=== PATIENT | male | born 1975 | race African-American/Black ===

== ENCOUNTER 2017-08-02 20:42 | Inpatient (IN) | payer OTHER ==
[2017-08-02 21:00] VITALS: BMI 28.0
--- NOTE | 2017-08-02 21:29 | HP ---
CIWA Score - CIWA Score Nausea/Vomitin-Mild Nausea/No Vomiting Muscle Tremors: 5 Anxiety: 4-Mod. Anxious/Guarded Agitation: 1-Slight > Activity Paroxysmal Sweats: 3 Orientation: 1-Uncertain about Date Tacttile Disturbances: 0-None Auditory Disturbances: 0-None Visual Disturbances: 0-None Headache: 0-None Present CIWA-Ar Total Score: 15 Admission ROS S - HPI Chief Complaint: Alcohol withdrawal symptoms Allergies/Adverse Reactions: Allergies Allergy/AdvReac Type Severity Reaction Status Date / Time No Known Allergies Allergy Verified 08/02/17 21:59 History of Present Illness: 42 years old male with a long history of alcohol dependence is admitted to detox. Patient has been in previous detox and reports 2 years of sobriety. He has medical history of asthma, HTN, GERD and depression. He denies suicide attempt and suicidal ideation at this time. Exam Limitations: No Limitations - Ebola screening Have you traveled outside of the country in the last 21 days: No Have you had contact with anyone from an Ebola affected area: No Have you been sick,other than usual withdrawal symptoms: No Do you have a fever: No - Review of Systems Constitutional: Loss of Appetite, Malaise, Night Sweats, Changes in sleep EENT: reports: Nose Congestion, Sinus Pressure Respiratory: reports: No Symptoms reported Cardiac: reports: No Symptoms Reported GI: reports: Nausea, Poor Appetite, Poor Fluid Intake : reports: No Symptoms Reported Musculoskeletal: reports: Back Pain, Muscle Pain, Muscle Weakness Integumentary: reports: Flushing Neuro: reports: Tingling, Tremors Endocrine: reports: No Symptoms Reported Hematology: reports: No Symptoms Reported Psychiatric: reports: Orientated x3, Agitated, Anxious Other Systems: Reviewed and Negative Patient History - Patient Medical History Hx Anemia: No Hx Asthma: Yes (ALBUTEROL) Hx Chronic Obstructive Pulmonary Disease (COPD): No Hx Cancer: No Hx Cardiac Disorders: No Hx Congestive Heart Failure: No Hx Hypertension: Yes (VERAPRAMIL) Hx Hypercholesterolemia: No Hx Pacemaker: No HX Cerebrovascular Accident: No Hx Seizures: No Hx Diabetes: No Hx Gastrointestinal Disorders: No (GERD) Hx Liver Disease: No Hx Genitourinary Disorders: No Hx Sexually Transmitted Disorders: No Hx Renal Disease (ESRD): No Hx Thyroid Disease: No Hx Human Immunodeficiency Virus (HIV): No (NEGATIVE 2016) Hx Hepatitis C: No (NEGATIVE 2016) Hx Depression: Yes Hx Suicide Attempt: No (Denies suicidal ideation at this time) Hx Bipolar Disorder: No Hx Schizophrenia: Yes - Patient Surgical History Hx Neurologic Surgery: No Hx Cataract Extraction: No Hx Cardiac Surgery: No Hx Lung Surgery: No Hx Abdominal Surgery: No Hx Appendectomy: No Hx Cholecystectomy: No Hx Genitourinary Surgery: No Hx Orthopedic Surgery: Yes (NECK SURGERY 2010) Anesthesia Reaction: No - PPD History Previous Implant?: Yes Documented Results: Negative w/o proof Implanted On Prior [facility] Admission?: No PPD to be Administered?: Yes - Reproductive History Patient is a Female of Child Bearing Age (11 -55 yrs old): No (MALE) - Smoking Cessation Smoking history: Current every day smoker Have you smoked in the past 12 months: Yes Aproximately how many cigarettes per day: 20 Hx Chewing Tobacco Use: No Initiated information on smoking cessation: Yes 'Breaking Loose' booklet given: 08/02/17 - Substance & Tx. History Hx Alcohol Use: Yes Hx Substance Use: Yes Substance Use Type: Cocaine, Marijuana Hx Substance Use Treatment: Yes ([place], [place]) - Substances Abused Alcohol Route: Oral Frequency: Daily Amount used: LIQUOR- 1 PINT, BEER - 6 PACKS Age of first use: 12 Date of Last Use: 08/02/17 Cocaine Route: Smoking Frequency: Daily Amount used: 10 GRAMS Age of first use: 19 Date of Last Use: 08/02/17 Marijuana/Hashish Route: Smoking Frequency: Daily Amount used: 2 BAGS Age of first use: 14 Date of Last Use: 08/02/17 Family Disease History - Family Disease History Family History: Denies Admission Physical Exam [facility] - Vital Signs Vital Signs: Vital Signs - 24 hr 08/02/17 20:56 Temperature 97.7 F Pulse Rate 92 H Respiratory 18 Rate Blood Pressure 155/100 - Physical General Appearance: Yes: Moderate Distress HEENTM: Yes: EOMI, Normocephalic, Normal Voice, KWAN Respiratory: Yes: Lungs Clear, Normal Breath Sounds, No Respiratory Distress Neck: Yes: Supple Breast: Yes: Breast Exam Deferred Cardiology: Yes: Regular Rhythm, Regular Rate, S1, S2 Abdominal: Yes: Normal Bowel Sounds, Soft Genitourinary: Yes: Within Normal Limits Back: Yes: Normal Inspection Musculoskeletal: Yes: Back pain, Muscle Pain Extremities: Yes: Tremors Neurological: Yes: Normal Mood/Affect Integumentary: Yes: Dry Lymphatic: Yes: Within Normal Limits - Diagnostic (1) Alcohol dependence with uncomplicated withdrawal Current Visit: Yes Status: Acute (2) Cocaine dependence, uncomplicated Current Visit: Yes Status: Acute (3) Cannabis dependence, uncomplicated Current Visit: Yes Status: Acute (4) HTN (hypertension) Current Visit: Yes Status: Chronic Qualifiers: Hypertension type: essential hypertension Qualified Code(s): I10 - Essential (primary) hypertension (5) Asthma Current Visit: Yes Status: Chronic Qualifiers: Asthma severity: mild Asthma persistence: intermittent Asthma complication type: uncomplicated Qualified Code(s): J45.20 - Mild intermittent asthma, uncomplicated (6) Nicotine dependence Current Visit: Yes Status: Acute Qualifiers: Nicotine product type: cigarettes Substance use status: uncomplicated Qualified Code(s): F17.210 - Nicotine dependence, cigarettes, uncomplicated (7) Depression Current Visit: Yes Status: Chronic Qualifiers: Depression Type: unspecified Qualified Code(s): F32.9 - Major depressive disorder, single episode, unspecified Cleared for Admission [facility] - Detox or Rehab [facility] Level of Care: Medically Managed Detox Regimen/Protocol: Librium [facility] Breath Alcohol Content Breath Alcohol Content: 0 Urine Drug Screen - Results Drug Screen Negative: No Urine Drug Screen Results: THC-Marijuana, ANA ROSA-Cocaine
[2017-08-02] MEDS ORDERED: P-EPHED 60MG/TRIPROLIDI 2.5MG TABLET PO PRN (21:44)
[2017-08-02] MEDS ORDERED: LOPERAMIDE HCL 2 MG CAPSULE PO PRN (21:44)
[2017-08-02] MEDS ORDERED: MAG HYDROX/AL HYDROX/SIMETH 30 ML UNIT-DOSE CUP PO PRN (21:44)
[2017-08-02] MEDS ORDERED: ACETAMINOPHEN 325 MG TABLET (FP) PO PRN (21:44)
[2017-08-02] MEDS ORDERED: chlordiazePOXIDE HCL 25 MG CAPSULE PO PRN (21:44)
[2017-08-02] MEDS ORDERED: MAGNESIUM HYDROX 2400MG/30ML ORAL SUSPENSION 30 ML CUP PO PRN (21:44)
[2017-08-02] MEDS ORDERED: MAGNESIUM CITRATE 300 ML BOTTLE PO PRN (21:44)
[2017-08-02] MEDS ORDERED: MENTHOL/PHENOL 1 EACH UD MM PRN (21:44)
[2017-08-02] MEDS ORDERED: guaiFENesin/D-METHORPHAN HB 10 ML UNIT-DOSE CUPS PO PRN (21:44)
[2017-08-02] MEDS ORDERED: IBUPROFEN 400 MG TABLET (FP) PO PRN (21:44)
[2017-08-02] MEDS ORDERED: NICOTINE POLACRILEX 2 MG GUM BC PRN (21:44)
[2017-08-02] MEDS ORDERED: ALBUTEROL SO4 18 GM HFA INHALER IH PRN (21:46)
[2017-08-02] MEDS ORDERED: cloNIDine HCL 0.1 MG TABLET PO ONE (21:47)
[2017-08-03] MEDS: chlordiazePOXIDE HCL 25 MG CAPSULE PO SCH ×5 (01:11→22:17)
[2017-08-03] MEDS: THIAMINE HCL 100 MG TABLET (FP) PO SCH ×2 (01:11→22:19)
[2017-08-03] MEDS ORDERED: VERAPAMIL HCL 300 MG PO SCH (10:00)
[2017-08-03] MEDS: NICOTINE 14 MG/24 HOURS TOPICAL PATCH TD SCH (10:15)
[2017-08-03] MEDS: PRENATAL VITAMINS W/ FOLIC ACID TABLET (FP) PO SCH (10:16)
[2017-08-03 10:24] LABS: ALBUMIN 3.5 g/dl (3.4-5.0); ANION GAP 7 (8-16); BLOOD UREA NITROGEN 22 mg/dL (7-18); CALCIUM 8.3 mg/dL (8.5-10.1); CHLORIDE 109 mmol/L (98-107); CO2 29 mmol/L (21-32); CREATININE 1.2 mg/dL (0.7-1.3); GLUCOSE,RANDOM 90 mg/dL (74-106); SGOT/AST 15 U/L (15-37); SGPT/ALT 27 U/L (12-78); SODIUM 145 mmol/L (136-145)
[2017-08-03 10:25] LABS: HEMATOCRIT 39.4 % (35.4-49); HEMOGLOBIN 12.2 GM/dL (11.7-16.9); MCH 23.1 pg (25.7-33.7); MEAN CELL VOLUME 74.5 fl (80-96); MEAN PLT VOLUME 8.6 fl (7.5-11.1); PLATELET COUNT 248 K/MM3 (134-434); RDW 16.3 % (11.9-15.9); WHITE BLOOD COUNT 6.2 K/mm3 (4.0-10.0)
[2017-08-03 10:26] LABS: ALK PHOS 63 U/L (45-117); BILIRUBIN,TOTAL 0.3 mg/dL (0.2-1.0); TOT PROT 5.9 g/dl (6.4-8.2)
--- NOTE | 2017-08-03 10:48 | EKG ---
Test Reason : Blood Pressure : / mmHG Vent. Rate : 074 BPM Atrial Rate : 074 BPM P-R Int : 218 ms QRS Dur : 086 ms QT Int : 406 ms P-R-T Axes : 062 043 061 degrees QTc Int : 450 ms SINUS RHYTHM WITH 1ST DEGREE A-V BLOCK OTHERWISE NORMAL ECG WHEN COMPARED WITH ECG OF 24-NOV-2005 20:18, NO SIGNIFICANT CHANGE WAS FOUND Confirmed by Stoney Miner ([id number]) on 08/03/2017 10:47:55 AM Referred By: Confirmed By:Stoney Minre
--- NOTE | 2017-08-03 11:08 | PN ---
[facility] CIWA - CIWA Score Nausea/Vomitin-No Nausea/No Vomiting Muscle Tremors: 2 Anxiety: 3 Agitation: 3 Paroxysmal Sweats: 3 Orientation: 0-Oriented Tacttile Disturbances: 3-Moderate Itch/Numb/Burn Auditory Disturbances: 0-None Visual Disturbances: 2-Mild Sensitivity Headache: 0-None Present CIWA-Ar Total Score: 16 S Progress Note (SOAP) Subjective: Diarrhea, Stomach Cramping, Sweating, Interrupted Sleep. Objective: PT. A & O X 3, OBSERVED AMBULATING ON UNIT. NO ACUTE DISTRESS. PT. DENIES CHEST PAIN, SOB, AND DIZZINESS. 08/03/17 11:08 Vital Signs Temperature 98.0 F 08/03/17 09:06 Pulse Rate 76 08/03/17 09:06 Respiratory Rate 18 08/03/17 09:06 Blood Pressure 109/74 08/03/17 09:06 O2 Sat by Pulse Oximetry (%) Laboratory Tests 08/03/17 08/03/17 07:00 07:00 WBC 6.2 RBC 5.30 Hgb 12.2 Hct 39.4 MCV 74.5 L MCH 23.1 L MCHC 31.0 L RDW 16.3 H Plt Count 248 MPV 8.6 Sodium 145 Potassium 4.0 Chloride 109 H Carbon Dioxide 29 Anion Gap 7 L BUN 22 H Creatinine 1.2 Creat Clearance w eGFR > 60 Random Glucose 90 Calcium 8.3 L Total Bilirubin 0.3 AST 15 ALT 27 Alkaline Phosphatase 63 Total Protein 5.9 L Albumin 3.5 LABS NOTED. RESULTS OF ADMISSION ECG NOTED. 08/03/17 11:22 08/03/17 11:23 Assessment: 08/03/17 11:11 WITHDRAWAL SYMPTOMS. Plan: CONTINUE DETOX. INCREASE DAILY POI FLUID INTAKE. ASIDE FROM HTN, PATIENT DENIES ANY KNOWN HISTORY OF CARDIAC DISEASE, INCLUDING ECG ABNORMALITY. PATIENT STATES THAT HE DOES NOT CURRENTLY HAVE A LABORER OPERATOR. PATIENT ADVISED TO OBTAIN A LABORER OPERATOR AT [facility] (NEAR HIS HOME) AFTER DISCHARGE FROM DETOX TO GO TO FOR FURTHER MEDICAL EVALUATION OF ECG ABNORMALITY.
[2017-08-03 11:41] LABS: SICKLE CELL SCREEN NEGATIVE (NEGATIVE)
[2017-08-03] MEDS: VERAPAMIL HCL 180 MG E.R. TABLET (FP) PO SCH (12:22)
--- NOTE | 2017-08-03 12:43 | CONSULT ---
[facility] Psychiatric Consult - Data Date of interview: 08/03/17 Admission source: [facility] Identifying data: Readmiision to [facility] for this 42 y/o AA male seeking detox treatment on for alcohol,cannabis and cocaine (crack) dependence.Patient is single without children,comiciled and currently employed. Substance Abuse History: Confirmed by patient in this interview.See details in current [facility] report .Smoking history: Current every day smoker. Have you smoked in the past 12 months: Yes. Aproximately how many cigarettes per day: 20. Hx Chewing Tobacco Use: No. Initiated information on smoking cessation: Yes. ' Breaking Loose' booklet given: 08/02/17. - Substance & Tx. History. Hx Alcohol Use: Yes. Hx Substance Use: Yes. Substance Use Type: Cocaine, Marijuana. Hx Substance Use Treatment: Yes ([place], [place]). - Substances Abused. Alcohol. Route: Oral. Frequency: Daily. Amount used : LIQUOR- 1 PINT, BEER - 6 PACKS. Age of first use: 12. Date of Last Use: 11/12. Cocaine. Route: Smoking. Frequency: Daily. Amount used: 10 GRAMS. Age of first use: 19. Date of Last Use: 08/02/17. Marijuana/Hashish. Route: Smoking. Frequency: Daily. Amount used: 2 BAGS. Age of first use: 14. Date of Last Use: 08/02/17 Medical History: Hypertension,GERD,bronchial asthma and a history of neck surgery (2010). Psychiatric History: Diagnosed with Paranoid Schizophrenia.Patient reports a history of two psychiatric hospitalizations at [facility] in [facility].maintained on a regimen of zyprexa 15 mg/hs + gabapentin (dose not recalled).Mr Carpenter declares that he gets outpatient psychiatric services at the [facility] ([place]).Denies history of suicide attempts. Physical/Sexual Abuse/Trauma History: Patient denies. Additional Comment: Urine Drug Screen Results: THC-Marijuana, ANA ROSA-Cocaine.Noted. Mental Status Exam - Mental Status Exam Alert and Oriented to: Time, Place, Person Cognitive Function: Good Patient Appearance: Well Groomed Mood: Withdrawn, Anxious, Hopeful Affect: Mood Congruent Patient Behavior: Fatigued, Appropriate, Cooperative Speech Pattern: Clear, Appropriate Voice Loudness: Normal Thought Process: Intact, Goal Oriented Thought Disorder: Not Present Hallucinations: Denies Suicidal Ideation: Denies Homicidal Ideation: Denies Insight/Judgement: Poor Sleep: Poorly, Difficulty falling asleep (wants ambien) Appetite: Good Muscle strength/Tone: Normal Gait/Station: Normal Psychiatric Findings - Problem List ([place] 1, 2,3) (1) Alcohol dependence with uncomplicated withdrawal Current Visit: Yes Status: Acute (2) Cannabis dependence, uncomplicated Current Visit: Yes Status: Acute (3) Cocaine dependence, uncomplicated Current Visit: Yes Status: Acute (4) Nicotine dependence Current Visit: Yes Status: Acute Qualifiers: Nicotine product type: cigarettes Substance use status: uncomplicated Qualified Code(s): F17.210 - Nicotine dependence, cigarettes, uncomplicated (5) Substance induced mood disorder Current Visit: Yes Status: Acute (6) Schizophrenia Current Visit: Yes Status: Chronic Qualifiers: Schizophrenia type: paranoid schizophrenia Qualified Code(s): F20.0 - Paranoid schizophrenia (7) Insomnia Current Visit: Yes Status: Acute - Initial Treatment Plan Initial Treatment Plan: Psychoeducation and support provided in this session.Sleep hygiene discussed.Detoxification in effect.Medications : zyprexa 15 mg po hs + ambien 10 mg po hs prn + gabapentin 100 mg po tid.Side effects/ benfits of each drug are discussed with patient.Medications are verified via survey of pharmacy claims of 06/24/17 + 07/05/17 at [facility] # [id number] (noted additional refills for risperdal Consta 50 mg IM every two weeks + trazodone 100 mg/hs) .Patient has expressed a preference for ambien.Mr Carpenter consented (verbally) to this plan of care).Observation.
[2017-08-03] MEDS: GABAPENTIN 100 MG CAPSULE (FP) PO SCH ×2 (13:09→22:17)
[2017-08-03] MEDS ORDERED: ZOLPIDEM TARTRATE 10 MG TABLET (PARK CARE ONLY) PO PRN (22:00)
[2017-08-03] MEDS ORDERED: OLANZapine 7.5 MG TABLET PO SCH (22:00)
[2017-08-04] MEDS: GABAPENTIN 100 MG CAPSULE (FP) PO SCH (05:13)
[2017-08-04] MEDS: chlordiazePOXIDE HCL 25 MG CAPSULE PO SCH ×2 (05:13→10:18)
[2017-08-04 08:56] VITALS: BP 111/79; PULSE 64; TEMP 96.7
[2017-08-04] MEDS: PRENATAL VITAMINS W/ FOLIC ACID TABLET (FP) PO SCH (10:18)
[2017-08-04] MEDS: NICOTINE 14 MG/24 HOURS TOPICAL PATCH TD SCH (10:19)
[2017-08-04] MEDS: VERAPAMIL HCL 180 MG E.R. TABLET (FP) PO SCH (10:19)
--- NOTE | 2017-08-04 15:04 | DS ---
[facility] Detox Discharge Summary Admission Date: 08/02/17 Discharge Date: 08/04/17 - History Present History: Alcohol Dependence, Cannabis Dependence, Cocaine Dependence Additional Comments: PATIENT HAS PERSONAL ISSUE TO ATTEND TO AND DOES NOT WISH TO STAY TO COMPLETE DETOX REGIMEN. RISKS OF LEAVING DETOX UNIT AGAINST MEDICAL ADVICE AND PRIOR TO COMPLETION OF DETOX REGIMEN DISCUSSED WITH PATIENT. PATIENT ADVISED TO GO IMMEDIATELY TO NEAREST ER SHOULD ANY INTOLERABLE DETOX SYMPTOMS DEVELOP AT ANY TIME. PATIENT LEFT DETOX UNIT IN STABLE MEDICAL CONDITION. Pertinent Past History: Asthma, HTN, GERD, Insomnia,Schizophrenia, HTN, Depression. - Physical Exam Results Vital Signs: Vital Signs Temperature 96.7 F L 08/04/17 08:55 Pulse Rate 64 08/04/17 08:55 Respiratory Rate 18 08/04/17 08:55 Blood Pressure 111/79 08/04/17 08:55 O2 Sat by Pulse Oximetry (%) Pertinent Admission Physical Exam Findings: WITHDRAWAL SYMPTOMS. Laboratory Tests 08/02/17 08/03/17 08/03/17 07:00 07:00 07:00 WBC 6.2 RBC 5.30 Hgb 12.2 Hct 39.4 MCV 74.5 L MCH 23.1 L MCHC 31.0 L RDW 16.3 H Plt Count 248 MPV 8.6 Sickle Cell Screen Negative Sodium 145 Potassium 4.0 Chloride 109 H Carbon Dioxide 29 Anion Gap 7 L BUN 22 H Creatinine 1.2 Creat Clearance w eGFR > 60 Random Glucose 90 Calcium 8.3 L Total Bilirubin 0.3 AST 15 ALT 27 Alkaline Phosphatase 63 Total Protein 5.9 L Albumin 3.5 RPR Titer Hepatitis C Antibody <0.1 HIV 1&2 Antibody Screen HIV P24 Antigen 08/03/17 08/03/17 07:00 07:00 WBC RBC Hgb Hct MCV MCH MCHC RDW Plt Count MPV Sickle Cell Screen Sodium Potassium Chloride Carbon Dioxide Anion Gap BUN Creatinine Creat Clearance w eGFR Random Glucose Calcium Total Bilirubin AST ALT Alkaline Phosphatase Total Protein Albumin RPR Titer Nonreactive Hepatitis C Antibody HIV 1&2 Antibody Screen Negative HIV P24 Antigen Negative LABS NOTED. - Treatment Hospital Course: Detoxed Safely - Medication Discharge Medications: Ambulatory Orders Albuterol Sulfate Inhaler - [Ventolin HFA Inhaler -] 2 inh PO Q4H PRN 04/17/14 Clozapine [Clozaril] 25 mg PO DAILY 04/17/14 Gabapentin 300 mg PO DAILY 04/17/14 Sertraline HCl [Zoloft -] 25 mg PO DAILY 04/17/14 Verapamil HCl [Verapamil ER] 180 mg PO DAILY 08/03/17 - Diagnosis (1) Alcohol dependence with uncomplicated withdrawal Status: Acute (2) Asthma Status: Chronic Qualifiers: Asthma severity: mild Asthma persistence: intermittent Asthma complication type: uncomplicated Qualified Code(s): J45.20 - Mild intermittent asthma, uncomplicated (3) Cannabis dependence, uncomplicated Status: Acute (4) Cocaine dependence, uncomplicated Status: Acute (5) Depression Status: Chronic Qualifiers: Depression Type: unspecified Qualified Code(s): F32.9 - Major depressive disorder, single episode, unspecified (6) HTN (hypertension) Status: Chronic Qualifiers: Hypertension type: essential hypertension Qualified Code(s): I10 - Essential (primary) hypertension (7) Nicotine dependence Status: Acute Qualifiers: Nicotine product type: cigarettes Substance use status: uncomplicated Qualified Code(s): F17.210 - Nicotine dependence, cigarettes, uncomplicated (8) Insomnia Status: Acute Qualifiers: Insomnia type: unspecified Qualified Code(s): G47.00 - Insomnia, unspecified (9) Substance induced mood disorder Status: Acute (10) Schizophrenia Status: Chronic Qualifiers: Schizophrenia type: paranoid schizophrenia Qualified Code(s): F20.0 - Paranoid schizophrenia - AMA Did Patient Leave Against Medical Advice: Yes (PT. HAS PERSONAL ISSUE AND DOES NOT WISH TO STAY TO COMPLETE DETOX REGIMEN.)
[2017-08-04] MEDS ORDERED: chlordiazePOXIDE 5 MG CAPSULE PO SCH (23:00)
[2017-08-05] MEDS ORDERED: chlordiazePOXIDE HCL 10 MG CAPSULE PO SCH (23:00)
== END 2017-08-04 13:43 | disposition left against medical advice (07) | DRG 770 ==
LOC: YASAS 20:42 → Y3N 22:34
PROVIDERS: ADMIT Internal Medicine; ATTEND Internal Medicine
PROC: HZ2ZZZZ Detoxification Services for Substance Abuse Treatment (ICD-10-PCS; principal; 2017-08-02)
DX: F10.230 Alcohol dependence with withdrawal, uncomplicated (principal); F14.20 Cocaine dependence, uncomplicated; F17.210 Nicotine dependence, cigarettes, uncomplicated; F19.24 Other psychoactive substance dependence with psychoactive substance-induced mood disorder; F20.0 Paranoid schizophrenia; F32.9 Major depressive disorder, single episode, unspecified; J45.20 Mild intermittent asthma, uncomplicated; I10 Essential (primary) hypertension; G47.00 Insomnia, unspecified; K21.9 Gastro-esophageal reflux disease without esophagitis
CPT/HCPCS: 36415; 80053; 85027; 85660; 86593; 86803; 87389; 93005; 93010

== ENCOUNTER 2018-02-04 21:48 | Inpatient (IN) | payer OTHER ==
[2018-02-04] MEDS ORDERED: MELATONIN 5 MG TABLETS PO PRN (22:00)
[2018-02-04 22:17] VITALS: BMI 27.1
--- NOTE | 2018-02-04 23:05 | HP ---
CIWA Score - CIWA Score Nausea/Vomitin-No Nausea/No Vomiting Muscle Tremors: 1-None Visible, but [place] Anxiety: 4-Mod. Anxious/Guarded Agitation: 4-Moderately Restless Paroxysmal Sweats: 3 Orientation: 3-Disoriented Date>2 days Tacttile Disturbances: 0-None Auditory Disturbances: 0-None Visual Disturbances: 0-None Headache: 2-Mild CIWA-Ar Total Score: 17 Admission ROS S - HPI Chief Complaint: SEEKING DETOX FOR C/O ALCOHOL RELATED WITHDRAWAL SX'S Allergies/Adverse Reactions: Allergies Allergy/AdvReac Type Severity Reaction Status Date / Time No Known Allergies Allergy Verified 02/04/18 23:18 History of Present Illness: 42 Y.O. MALE WITH LONG HX/O OF POLYSUBSTANCE ABUSE HERE FOR ALCOHOL DETOX. CLIENT IS SELF REFERRED. KNOWN TO THIS PROGRAM. LAST HERE 07/2017. REPORTS LONGEST CLEAN TIME 18 MONTHS. DENIES HX/O SEIZURES, SI/HI/ AVH/DT'S. CLIENT IS NON COMPLIANT WITH HO,E MEDS OVER TWO WEEKS. HX/O HTN B/P NL- WILL CONT TO MONITOR CLINICALLY Exam Limitations: No Limitations - Ebola screening Have you traveled outside of the country in the last 21 days: No (N) Have you had contact with anyone from an Ebola affected area: No Have you been sick,other than usual withdrawal symptoms: No Do you have a fever: No - Review of Systems Constitutional: Chills, Night Sweats, Changes in sleep EENT: reports: Hearing Loss (REPORTS "BOTH OF MY EARS ARE CLOGGED") Respiratory: reports: Other (HX/O ASTHMA) Cardiac: reports: No Symptoms Reported GI: reports: No Symptoms Reported : reports: No Symptoms Reported Musculoskeletal: reports: Back Pain (CHRONIC), Other (LEFT LEG CHRONIC PAIN) Integumentary: reports: No Symptoms Reported Neuro: reports: No Symptoms reported Endocrine: reports: No Symptoms Reported Hematology: reports: No Symptoms Reported Psychiatric: reports: Anxious Other Systems: Reviewed and Negative Patient History - Patient Medical History Hx Anemia: No Hx Asthma: Yes (ALBUTEROL) Hx Chronic Obstructive Pulmonary Disease (COPD): No Hx Cancer: No Hx Cardiac Disorders: No Hx Congestive Heart Failure: No Hx Hypertension: Yes (VERAPRAMIL) Hx Hypercholesterolemia: No Hx Pacemaker: No HX Cerebrovascular Accident: No Hx Seizures: No Hx Diabetes: No Hx Gastrointestinal Disorders: Yes (GERD) Hx Liver Disease: No Hx Genitourinary Disorders: No Hx Sexually Transmitted Disorders: No Hx Renal Disease (ESRD): No Hx Thyroid Disease: No Hx Human Immunodeficiency Virus (HIV): No (NEGATIVE 2016) Hx Hepatitis C: No (NEGATIVE 2017) Hx Depression: Yes Hx Suicide Attempt: No (Denies suicidal ideation at this time) Hx Bipolar Disorder: No Hx Schizophrenia: Yes Other Medical History: DENIES - Patient Surgical History Past Surgical History: No Hx Neurologic Surgery: No Hx Cataract Extraction: No Hx Cardiac Surgery: No Hx Lung Surgery: No Hx Breast Surgery: No Hx Breast Biopsy: No Hx Abdominal Surgery: No Hx Appendectomy: No Hx Cholecystectomy: No Hx Genitourinary Surgery: No Hx Section: No Hx Orthopedic Surgery: Yes (NECK SURGERY 2010) Anesthesia Reaction: No - PPD History Previous Implant?: Yes Documented Results: Positive w/o proof Implanted On Prior [facility] Admission?: No PPD to be Administered?: No - Smoking Cessation Smoking history: Current every day smoker Have you smoked in the past 12 months: Yes Aproximately how many cigarettes per day: 20 Cigars Per Day: 0 Hx Chewing Tobacco Use: No Initiated information on smoking cessation: Yes 'Breaking Loose' booklet given: 02/04/18 - Substance & Tx. History Hx Alcohol Use: Yes Hx Substance Use: Yes Substance Use Type: Alcohol, Cocaine, Heroin Hx Substance Use Treatment: Yes ([facility]) - Substances Abused LIQUOR Route: Oral Frequency: Daily Amount used: 1 QUART Age of first use: 15 Date of Last Use: 02/04/18 THC Route: Smoking Frequency: Daily Amount used: $50 Age of first use: 12 Date of Last Use: 02/03/18 COCAINE Route: Smoking Frequency: 3-6 times per week Amount used: $40 Age of first use: 19 Date of Last Use: 02/04/18 Family Disease History - Family Disease History Family History: Unable to Obtain (DOES NOT HAVE CONTACT) Admission Physical Exam S - Vital Signs Vital Signs: Vital Signs - 24 hr 02/04/18 22:15 Temperature 100.4 F H Pulse Rate 108 H Respiratory 18 Rate Blood Pressure 117/90 - Physical General Appearance: Yes: Appropriately Dressed, Mild Distress, Tremorous (FELT) , Anxious HEENTM: Yes: EOMI, Normocephalic, Normal Voice, KWAN, Pharynx Normal, Other ( POOR DENTITION) Respiratory: Yes: Chest Non-Tender, Lungs Clear, Normal Breath Sounds, No Respiratory Distress, No Accessory Muscle Use Neck: Yes: No masses,lesions,Nodules, Supple, Trachea in good position Breast: Yes: Breast Exam Deferred Cardiology: Yes: Regular Rhythm, Regular Rate, S1, S2 Abdominal: Yes: Normal Bowel Sounds, Non Tender, Soft Genitourinary: Yes: Other (NO C/O) Back: Yes: Normal Inspection Musculoskeletal: Yes: full range of Motion, Gait Steady Extremities: Yes: Normal Capillary Refill, Normal Range of Motion, Non-Tender, Tremors (FELT), Other (SCAR ON LEFT KNEE) Neurological: Yes: Alert, Motor Strength 5/5, Disoriented (TO DATE) Integumentary: Yes: Dry, Warm Lymphatic: Yes: Within Normal Limits - Diagnostic (1) Hearing difficulty of both ears Current Visit: Yes Status: Chronic Comment: SOUNDS ARE MUFFLED (2) Alcohol dependence with uncomplicated withdrawal Current Visit: Yes Status: Acute (3) Cannabis dependence, uncomplicated Current Visit: Yes Status: Chronic (4) Cocaine dependence, uncomplicated Current Visit: Yes Status: Chronic (5) Insomnia Current Visit: Yes Status: Chronic Qualifiers: Insomnia type: unspecified Qualified Code(s): G47.00 - Insomnia, unspecified (6) Nicotine dependence Current Visit: Yes Status: Chronic Qualifiers: Nicotine product type: cigarettes Substance use status: uncomplicated Qualified Code(s): F17.210 - Nicotine dependence, cigarettes, uncomplicated (7) Substance induced mood disorder Current Visit: Yes Status: Suspected (8) Asthma Current Visit: Yes Status: Chronic Qualifiers: Asthma severity: mild Asthma persistence: intermittent Asthma complication type: uncomplicated Qualified Code(s): J45.20 - Mild intermittent asthma, uncomplicated (9) HTN (hypertension) Current Visit: Yes Status: Chronic Qualifiers: Hypertension type: essential hypertension Qualified Code(s): I10 - Essential (primary) hypertension Cleared for Admission [facility] - Detox or Rehab [facility] Level of Care: Medically Managed Detox Regimen/Protocol: Librium Claeared for Rehab Admission: No [facility] Breath Alcohol Content Breath Alcohol Content: 0 Urine Drug Screen - Results Drug Screen Negative: No Urine Drug Screen Results: THC-Marijuana, ANA ROSA-Cocaine
[2018-02-04] MEDS ORDERED: MAGNESIUM CITRATE 300 ML BOTTLE PO PRN (23:10)
[2018-02-04] MEDS ORDERED: IBUPROFEN 400 MG TABLET (FP) PO PRN (23:10)
[2018-02-04] MEDS ORDERED: P-EPHED 60MG/TRIPROLIDI 2.5MG TABLET PO PRN (23:10)
[2018-02-04] MEDS ORDERED: MAGNESIUM HYDROX 2400MG/30ML ORAL SUSPENSION 30 ML CUP PO PRN (23:10)
[2018-02-04] MEDS ORDERED: chlordiazePOXIDE HCL 25 MG CAPSULE PO PRN (23:10)
[2018-02-04] MEDS ORDERED: guaiFENesin/D-METHORPHAN HB 10 ML UNIT-DOSE CUPS PO PRN (23:10)
[2018-02-04] MEDS ORDERED: ACETAMINOPHEN 325 MG TABLET (FP) PO PRN (23:10)
[2018-02-04] MEDS ORDERED: hydrOXYzine PAMOATE 50 MG CAPSULE (FP) PO PRN (23:10)
[2018-02-04] MEDS ORDERED: MAG HYDROX/AL HYDROX/SIMETH 30 ML UNIT-DOSE CUP PO PRN (23:10)
[2018-02-04] MEDS ORDERED: MENTHOL/PHENOL 1 EACH UD MM PRN (23:10)
[2018-02-04] MEDS ORDERED: LOPERAMIDE HCL 2 MG CAPSULE PO PRN (23:10)
[2018-02-04] MEDS ORDERED: NICOTINE POLACRILEX 2 MG GUM BC PRN (23:10)
[2018-02-04] MEDS ORDERED: ALBUTEROL SO4 8 GM HFA INHALER IH PRN (23:11)
[2018-02-04] MEDS ORDERED: ALBUTEROL SO4 2.5/IPRATROPIUM 0.5 INH SOL 3 ML VIAL.NEB. NEB PRN (23:22)
[2018-02-05] MEDS: chlordiazePOXIDE HCL 25 MG CAPSULE PO SCH ×5 (00:30→22:44)
[2018-02-05 10:35] LABS: HEMATOCRIT 37.7 % (35.4-49); HEMOGLOBIN 12.2 GM/dL (11.7-16.9); MCH 22.9 pg (25.7-33.7); MCHC 32.2 g/dl (32.0-35.9); MEAN PLT VOLUME 8.8 fl (7.5-11.1); PLATELET COUNT 261 K/MM3 (134-434); RBC 5.31 M/mm3 (4.00-5.60); RDW 16.1 % (11.9-15.9); WHITE BLOOD COUNT 5.4 K/mm3 (4.0-10.0)
[2018-02-05 10:43] LABS: ALBUMIN 3.5 g/dl (3.4-5.0); ANION GAP 7 (8-16); BILIRUBIN,TOTAL 0.2 mg/dL (0.2-1.0); BLOOD UREA NITROGEN 29 mg/dL (7-18); CALCIUM 8.4 mg/dL (8.5-10.1); CHLORIDE 107 mmol/L (98-107); CO2 29 mmol/L (21-32); CREATININE 1.2 mg/dL (0.7-1.3); GLUCOSE,RANDOM 86 mg/dL (74-106); POTASSIUM 4.2 mmol/L (3.5-5.1); SGOT/AST 20 U/L (15-37); SGPT/ALT 32 U/L (12-78); SODIUM 143 mmol/L (136-145); TOT PROT 6.2 g/dl (6.4-8.2)
[2018-02-05 10:44] LABS: ALK PHOS 69 U/L (45-117)
[2018-02-05] MEDS: NICOTINE 21 MG/24 HOURS TOPICAL PATCH TD SCH (10:48)
[2018-02-05] MEDS: PRENATAL VITAMINS W/ FOLIC ACID TABLET (FP) PO SCH (10:48)
--- NOTE | 2018-02-05 13:41 | CONSULT ---
[facility] Psychiatric Consult - Data Date of interview: 02/05/18 Admission source: [facility] Identifying data: Patient is a 42 year old single male, without kids, unemployed , homeless, and supported by [facility]. This is one of multiple admissions for patient. Pt admitted to for alcohol, marijuana, and cocaine dependence. Substance Abuse History: PPD History. Previous Implant?: Yes. Documented Results: Positive w/o proof. Implanted On Prior R Admission?: No. PPD to be Administered?: No. - Smoking Cessation. Smoking history: Current every day smoker. Have you smoked in the past 12 months: Yes. Aproximately how many cigarettes per day: 20. Cigars Per Day: 0. Hx Chewing Tobacco Use: No. Initiated information on smoking cessation: Yes. 'Breaking Loose' booklet given : 02/04/18. - Substance & Tx. History. Hx Alcohol Use: Yes. Hx Substance Use : Yes. Substance Use Type: Alcohol, Cocaine, Heroin. Hx Substance Use Treatment: Yes ([facility]). - Substances Abused. LIQUOR. Route: Oral. Frequency: Daily. Amount used: 1 QUART. Age of first use: 15. Date of Last Use: 02/04/18. THC. Route: Smoking. Frequency: Daily. Amount used: $50. Age of first use: 12. Date of Last Use: 02/03/18. COCAINE. Route: Smoking. Frequency: 3-6 times per week. Amount used: $40. Age of first use: 19. Date of Last Use: 02/04/18 Medical History: Asthma, hypertension, GERD, Neck surgery 2010 Psychiatric History: Patient reports one psychiatric hospitalization at [facility]. Diagnosis of paranoid schizophrenia. OPD is currently provided at [facility]. Pt receives the haldol decanoate injection monthly. Reports receiving the decanoate a few weeks ago and is not due for it at this time. States he also takes zyprexa (not sure if its 5mg or 10mg but prefers 5mg qhs). Chart reviewed. Pt. was prescribed zyprexa 15mg from Dr. Landrum in July of 2017. Pt. denies h/o suicide attempt. Physical/Sexual Abuse/Trauma History: Denies. Mental Status Exam - Mental Status Exam Alert and Oriented to: Time, Place, Person Cognitive Function: Good Patient Appearance: Well Groomed Mood: Withdrawn Affect: Mood Congruent Patient Behavior: Fatigued, Asleep (Patient able to be awaken to complete consultation.) Speech Pattern: Slurred Voice Loudness: Moderately Soft/Quiet Thought Process: Goal Oriented Thought Disorder: Not Present Hallucinations: Denies Suicidal Ideation: Denies Homicidal Ideation: Denies Insight/Judgement: Poor Sleep: Fair Appetite: Fair Muscle strength/Tone: Normal Gait/Station: Other (Did not observe patient's gait.) Psychiatric Findings - Problem List ([place] 1, 2,3) (1) Alcohol dependence with uncomplicated withdrawal Current Visit: Yes Status: Acute (2) Cannabis dependence, uncomplicated Current Visit: Yes Status: Chronic (3) Cocaine dependence, uncomplicated Current Visit: Yes Status: Chronic (4) Schizophrenia Current Visit: Yes Status: Chronic Qualifiers: Schizophrenia type: paranoid schizophrenia Qualified Code(s): F20.0 - Paranoid schizophrenia - Initial Treatment Plan Initial Treatment Plan: Psychoeducation provided. Detoxification in progress. Will order Zyprexa 5mg qhs (patient prefers 5mg dose). Pt. is on the haldol decanoate injection and reports receiving it a few weeks ago. Benefits and side effects discussed. Verbal consent given.
--- NOTE | 2018-02-05 15:28 | PN ---
S CIWA - CIWA Score Nausea/Vomitin Muscle Tremors: 3 Anxiety: 4-Mod. Anxious/Guarded Agitation: 4-Moderately Restless Paroxysmal Sweats: 1-Minimal Palms Moist Orientation: 0-Oriented Tacttile Disturbances: 0-None Auditory Disturbances: 7Continuous Hallucination Headache: 0-None Present S Progress Note (SOAP) Subjective: C/O ANXIETY,CHILLS,STOMACH DISCOMFORT-DYSPEPSIA WITH HX OF GERD AND ZANTAC IN THE PAST. Objective: 02/05/18 15:27 Vital Signs 02/05/18 02/05/18 09:29 13:18 Temperature 98.2 F 98.1 F Pulse Rate 77 70 Respiratory 16 18 Rate Blood Pressure 114/67 100/61 Laboratory Tests 02/05/18 02/05/18 02/05/18 07:40 07:40 07:40 WBC 5.4 RBC 5.31 Hgb 12.2 Hct 37.7 MCV 71.0 L MCH 22.9 L MCHC 32.2 RDW 16.1 H Plt Count 261 MPV 8.8 Sodium 143 Potassium 4.2 Chloride 107 Carbon Dioxide 29 Anion Gap 7 L BUN 29 H Creatinine 1.2 Creat Clearance w eGFR > 60 Random Glucose 86 Calcium 8.4 L Total Bilirubin 0.2 AST 20 D ALT 32 Alkaline Phosphatase 69 Total Protein 6.2 L Albumin 3.5 RPR Titer Nonreactive UA PENDING Assessment: 02/05/18 15:28 WITHDRAWAL SX Plan: CONTINUE DETOX
[2018-02-05 17:09] LABS: URINE APPEARANCE CLEAR; URINE BILIRUBIN NEGATIVE (<2.0 mg/dL); URINE COLOR YELLOW; URINE GLUCOSE (UA) NEGATIVE (NEGATIVE); URINE KETONE NEGATIVE (NEGATIVE); URINE LEUK ESTERASE NEGATIVE (NEGATIVE); URINE NITRITE NEGATIVE (NEGATIVE); URINE PROTEIN NEGATIVE (NEGATIVE); URINE UROBILINOGEN 4.0 E.U/dl mg/dL (0.2-1.0)
[2018-02-05] MEDS ORDERED: OLANZapine 5 MG TABLET PO SCH (22:00)
[2018-02-05] MEDS ORDERED: THIAMINE HCL 100 MG TABLET (FP) PO SCH (22:00)
[2018-02-06] MEDS: chlordiazePOXIDE HCL 25 MG CAPSULE PO SCH ×3 (06:01→17:50)
--- NOTE | 2018-02-06 08:58 | EKG ---
Test Reason : Blood Pressure : / mmHG Vent. Rate : 074 BPM Atrial Rate : 074 BPM P-R Int : 212 ms QRS Dur : 084 ms QT Int : 396 ms P-R-T Axes : 069 044 062 degrees QTc Int : 439 ms SINUS RHYTHM WITH 1ST DEGREE A-V BLOCK OTHERWISE NORMAL ECG WHEN COMPARED WITH ECG OF 03-AUG-2017 09:36, NO SIGNIFICANT CHANGE WAS FOUND Confirmed by FRANCISCA MAN, PRADEEP ([id number]) on 02/06/2018 8:57:49 AM Referred By: Confirmed By:PRADEEP ESPINOSA MD
[2018-02-06] MEDS: NICOTINE 21 MG/24 HOURS TOPICAL PATCH TD SCH (10:31)
[2018-02-06] MEDS: PRENATAL VITAMINS W/ FOLIC ACID TABLET (FP) PO SCH (10:31)
[2018-02-06 13:41] VITALS: BP 100/64; PULSE 70; TEMP 97.7
--- NOTE | 2018-02-06 17:11 | PN ---
[facility] CIWA - CIWA Score Nausea/Vomitin Muscle Tremors: 3 Anxiety: 3 Agitation: 3 Paroxysmal Sweats: 3 Orientation: 0-Oriented Tacttile Disturbances: 1-Very Mild Itch/Numbness Auditory Disturbances: 0-None Visual Disturbances: 0-None Headache: 0-None Present CIWA-Ar Total Score: 15 [facility] Progress Note (SOAP) Subjective: Anxious, sweating, diarrhea Objective: 02/06/18 17:09 Last Vital Signs Temp Pulse Resp BP Pulse Ox 97.7 F 70 18 100/64 02/06/18 13:41 02/06/18 13:41 02/06/18 13:41 02/06/18 13:41 Laboratory Tests 02/04/18 02/05/18 02/05/18 15:46 07:40 07:40 WBC 5.4 RBC 5.31 Hgb 12.2 Hct 37.7 MCV 71.0 L MCH 22.9 L MCHC 32.2 RDW 16.1 H Plt Count 261 MPV 8.8 Sodium 143 Potassium 4.2 Chloride 107 Carbon Dioxide 29 Anion Gap 7 L BUN 29 H Creatinine 1.2 Creat Clearance w eGFR > 60 Random Glucose 86 Calcium 8.4 L Total Bilirubin 0.2 AST 20 D ALT 32 Alkaline Phosphatase 69 Total Protein 6.2 L Albumin 3.5 Urine Color Yellow Urine Appearance Clear Urine pH 6.0 Ur Specific [place] 1.030 Urine Protein Negative Urine Glucose (UA) Negative Urine Ketones Negative Urine Blood Negative Urine Nitrite Negative Urine Bilirubin Negative Urine Urobilinogen 4.0 e.u/dl Ur Leukocyte Esterase Negative RPR Titer 02/05/18 07:40 WBC RBC Hgb Hct MCV MCH MCHC RDW Plt Count MPV Sodium Potassium Chloride Carbon Dioxide Anion Gap BUN Creatinine Creat Clearance w eGFR Random Glucose Calcium Total Bilirubin AST ALT Alkaline Phosphatase Total Protein Albumin Urine Color Urine Appearance Urine pH Ur Specific [place] Urine Protein Urine Glucose (UA) Urine Ketones Urine Blood Urine Nitrite Urine Bilirubin Urine Urobilinogen Ur Leukocyte Esterase RPR Titer Nonreactive Labs reviewed: bun 29 Assessment: 02/06/18 17:09 Withdrawal symptoms Noted with azotemia Plan: Continue detox Azotemia: encouraged PO water hydration
--- NOTE | 2018-02-06 18:08 | PN ---
[facility] Progress Note Note: pt insisting on leaving the unit. States he is going to meet his sister who will be taking him to "my program" at [facility]. States he does not need any med refill at this time because he will get everything at [facility]. States he goes to [facility] @ [address] [place] [address] Rasheed Pt in no acute distress, A & O x 3, a little restless as he says "i am just not able to stay still" Denies HI/SI, visual nor auditory hallucination. Pt will sign out AMA.
--- NOTE | 2018-02-06 18:10 | DS ---
[facility] Detox Discharge Summary Admission Date: 02/04/18 Discharge Date: 02/06/18 - History Additional Comments: pls see progress note Pertinent Past History: asthma HTN Mood swings Anxiety - Physical Exam Results Vital Signs: Vital Signs Temperature 97.7 F 02/06/18 13:41 Pulse Rate 70 02/06/18 13:41 Respiratory Rate 18 02/06/18 13:41 Blood Pressure 100/64 02/06/18 13:41 O2 Sat by Pulse Oximetry (%) Pertinent Admission Physical Exam Findings: withdrawal sx - Medication Discharge Medications: Ambulatory Orders Albuterol Sulfate Inhaler - [Ventolin HFA Inhaler -] 2 inh PO Q4H PRN 04/17/14 Clozapine [Clozaril] 25 mg PO DAILY 04/17/14 Gabapentin 300 mg PO DAILY 04/17/14 Sertraline HCl [Zoloft -] 25 mg PO DAILY 04/17/14 Verapamil HCl [Verapamil ER] 180 mg PO DAILY 08/03/17 - Diagnosis (1) Alcohol dependence with uncomplicated withdrawal Current Visit: Yes Status: Acute (2) Asthma Current Visit: Yes Status: Chronic Qualifiers: Asthma severity: mild Asthma persistence: intermittent Asthma complication type: uncomplicated Qualified Code(s): J45.20 - Mild intermittent asthma, uncomplicated (3) Cannabis dependence, uncomplicated Current Visit: Yes Status: Chronic (4) Cocaine dependence, uncomplicated Current Visit: Yes Status: Chronic (5) HTN (hypertension) Current Visit: Yes Status: Chronic Qualifiers: Hypertension type: essential hypertension Qualified Code(s): I10 - Essential (primary) hypertension (6) Nicotine dependence Current Visit: Yes Status: Chronic Qualifiers: Nicotine product type: cigarettes Substance use status: in withdrawal Qualified Code(s): F17.213 - Nicotine dependence, cigarettes, with withdrawal (7) Depression Current Visit: No Status: Chronic Qualifiers: Depression Type: unspecified Qualified Code(s): F32.9 - Major depressive disorder, single episode, unspecified - AMA Did Patient Leave Against Medical Advice: Yes
[2018-02-06] MEDS ORDERED: chlordiazePOXIDE 5 MG CAPSULE PO SCH (23:00)
[2018-02-07] MEDS ORDERED: chlordiazePOXIDE HCL 10 MG CAPSULE PO SCH (23:00)
== END 2018-02-06 18:18 | disposition left against medical advice (07) | DRG 770 ==
LOC: YASAS 21:48 → Y3N 22:56
PROVIDERS: ADMIT Surgery; ATTEND Surgery
PROC: HZ2ZZZZ Detoxification Services for Substance Abuse Treatment (ICD-10-PCS; principal; 2018-02-04)
DX: F10.230 Alcohol dependence with withdrawal, uncomplicated (principal); F14.20 Cocaine dependence, uncomplicated; F12.20 Cannabis dependence, uncomplicated; F17.213 Nicotine dependence, cigarettes, with withdrawal; F32.9 Major depressive disorder, single episode, unspecified; F20.0 Paranoid schizophrenia; F19.24 Other psychoactive substance dependence with psychoactive substance-induced mood disorder; I10 Essential (primary) hypertension; J45.20 Mild intermittent asthma, uncomplicated; R79.89 Other specified abnormal findings of blood chemistry; H91.93 Unspecified hearing loss, bilateral; G47.00 Insomnia, unspecified; K21.9 Gastro-esophageal reflux disease without esophagitis; Z91.14 Patient's other noncompliance with medication regimen
CPT/HCPCS: 36415; 80053; 81003; 85027; 86593; 93005; 93010

== ENCOUNTER 2018-03-11 18:40 | Inpatient (IN) | payer OTHER ==
[2018-03-11 20:44] VITALS: BMI 25.1
[2018-03-11] MEDS ORDERED: MELATONIN 5 MG TABLETS PO PRN (22:00)
--- NOTE | 2018-03-11 23:33 | HP ---
CIWA Score - CIWA Score Nausea/Vomitin Muscle Tremors: 4-Moderate,w/Arms Extend Anxiety: 3 Agitation: 1-Slight > Activity Paroxysmal Sweats: No Perspiration Orientation: 2-Disoriented Date<2 days Tacttile Disturbances: 0-None Auditory Disturbances: 0-None Visual Disturbances: 0-None Headache: 3-Moderate CIWA-Ar Total Score: 16 Admission ROS S - HPI Chief Complaint: Alcohol withdrawal symptoms Allergies/Adverse Reactions: Allergies Allergy/AdvReac Type Severity Reaction Status Date / Time No Known Allergies Allergy Verified 02/27/18 09:04 History of Present Illness: 42 years old male with a long history of alcohol dependence is seeking admission to detox. Patient has been in previous detox and report insignificant period of sobriety. He has medical history of HTN, depression, asthma, GERD and anxiety . He denies suicide attempt and suicidal ideation at this time. Exam Limitations: No Limitations - Ebola screening Have you traveled outside of the country in the last 21 days: No (N) Have you had contact with anyone from an Ebola affected area: No Have you been sick,other than usual withdrawal symptoms: No Do you have a fever: No - Review of Systems Constitutional: Chills, Malaise, Night Sweats, Changes in sleep EENT: reports: No Symptoms Reported Respiratory: reports: No Symptoms reported Cardiac: reports: No Symptoms Reported GI: reports: Nausea, Poor Appetite, Poor Fluid Intake, Vomiting, Indigestion, Abdominal cramping : reports: No Symptoms Reported Musculoskeletal: reports: Back Pain, Muscle Pain Integumentary: reports: Dryness Neuro: reports: Tremors Endocrine: reports: No Symptoms Reported Hematology: reports: No Symptoms Reported Psychiatric: reports: Anxious, Depressed Other Systems: Reviewed and Negative Patient History - Patient Medical History Hx Anemia: No Hx Asthma: Yes (ALBUTEROL - last exacerbation years ago. ) Hx Chronic Obstructive Pulmonary Disease (COPD): No Hx Cancer: No Hx Cardiac Disorders: No Hx Congestive Heart Failure: No Hx Hypertension: Yes (VERAPRAMIL - states compliant w/ meds) Hx Hypercholesterolemia: No Hx Pacemaker: No HX Cerebrovascular Accident: No Hx Seizures: No Hx Diabetes: No Hx Gastrointestinal Disorders: Yes (GERD - resolves on own) Hx Liver Disease: No Hx Genitourinary Disorders: No Hx Sexually Transmitted Disorders: Yes (SYPHYLLIS AND TREATED - years ago) Hx Renal Disease (ESRD): No Hx Thyroid Disease: No Hx Human Immunodeficiency Virus (HIV): No (NEGATIVE 2017) Hx Hepatitis C: No (NEGATIVE 2017) Hx Depression: Yes ( Denies suicide attempt or suicidal ideation at this time) Hx Suicide Attempt: No Hx Bipolar Disorder: No Hx Schizophrenia: Yes ( on meds. Sees a [facility] at [facility]) Other Medical History: Anxiety - Not on medication - Patient Surgical History Past Surgical History: Yes Hx Neurologic Surgery: No Hx Cataract Extraction: No Hx Cardiac Surgery: No Hx Lung Surgery: No Hx Breast Surgery: No Hx Breast Biopsy: No Hx Abdominal Surgery: No Hx Appendectomy: No Hx Cholecystectomy: No Hx Genitourinary Surgery: No Hx Section: No Hx Orthopedic Surgery: Yes (NECK SURGERY 2010) Anesthesia Reaction: No - PPD History Previous Implant?: Yes Documented Results: Negative w/o proof PPD to be Administered?: Yes - Reproductive History Patient is a Female of Child Bearing Age (11 -55 yrs old): No (Male) - Smoking Cessation Smoking history: Current every day smoker Have you smoked in the past 12 months: Yes Aproximately how many cigarettes per day: 20 Cigars Per Day: 0 Hx Chewing Tobacco Use: No Initiated information on smoking cessation: Yes 'Breaking Loose' booklet given: 03/11/18 - Substance & Tx. History Hx Alcohol Use: Yes Hx Substance Use: Yes Substance Use Type: Alcohol, Cocaine, Heroin, Marijuana, Opiates Hx Substance Use Treatment: Yes ([facility]) - Substances Abused Alcohol Route: Oral Frequency: Daily Amount used: 1 PINT Age of first use: 15 Date of Last Use: 03/11/18 Cocaine Route: Smoking Frequency: Daily Amount used: $100 Age of first use: 15 Date of Last Use: 03/11/18 Family Disease History - Family Disease History Family History: Denies Admission Physical Exam [facility] - Vital Signs Vital Signs: Vital Signs - 24 hr 03/11/18 20:42 Temperature 99.2 F Pulse Rate 89 Respiratory 18 Rate Blood Pressure 102/63 - Physical General Appearance: Yes: Moderate Distress, Tremorous, Irritable, Sweating, Anxious HEENTM: Yes: EOMI, Normal ENT Inspection, Normocephalic, Normal Voice, KWAN Respiratory: Yes: Lungs Clear, Normal Breath Sounds, No Respiratory Distress Neck: Yes: Supple Breast: Yes: Breast Exam Deferred Cardiology: Yes: Regular Rhythm, Regular Rate, S1, S2 Genitourinary: Yes: Within Normal Limits Back: Yes: Normal Inspection Musculoskeletal: Yes: Within Normal Limits Extremities: Yes: Tremors Neurological: Yes: bar manager II-XII NML intact, Alert, Motor Strength 5/5, Normal Mood /Affect, Normal Response Integumentary: Yes: Warm Lymphatic: Yes: Within Normal Limits - Diagnostic (1) Anxiety Current Visit: Yes Status: Chronic (2) GERD (gastroesophageal reflux disease) Current Visit: Yes Status: Chronic (3) Alcohol dependence with uncomplicated withdrawal Current Visit: Yes Status: Chronic (4) Asthma Current Visit: Yes Status: Chronic Qualifiers: Asthma severity: mild Asthma persistence: intermittent Asthma complication type: uncomplicated Qualified Code(s): J45.20 - Mild intermittent asthma, uncomplicated (5) Cannabis dependence, uncomplicated Current Visit: Yes Status: Chronic (6) Cocaine dependence, uncomplicated Current Visit: Yes Status: Chronic (7) Depression Current Visit: Yes Status: Chronic Qualifiers: Depression Type: unspecified Qualified Code(s): F32.9 - Major depressive disorder, single episode, unspecified (8) HTN (hypertension) Current Visit: Yes Status: Chronic Qualifiers: Hypertension type: essential hypertension Qualified Code(s): I10 - Essential (primary) hypertension (9) Hearing difficulty of both ears Current Visit: Yes Status: Chronic Comment: SOUNDS ARE MUFFLED (10) History of asthma Current Visit: Yes Status: Chronic (11) Nicotine dependence Current Visit: Yes Status: Chronic Qualifiers: Nicotine product type: cigarettes Substance use status: in withdrawal Qualified Code(s): F17.213 - Nicotine dependence, cigarettes, with withdrawal Cleared for Admission [facility] - Detox or Rehab [facility] Level of Care: Medically Managed Detox Regimen/Protocol: Valium [facility] Breath Alcohol Content Breath Alcohol Content: 0 Urine Drug Screen - Results Drug Screen Negative: No Urine Drug Screen Results: THC-Marijuana, ANA ROSA-Cocaine, BZO-Benzodiazepines
[2018-03-11] MEDS ORDERED: diazePAM 5 MG TABLET PO ONE ×2 (23:38→23:44)
[2018-03-11] MEDS ORDERED: MENTHOL/PHENOL 1 EACH UD MM PRN (23:38)
[2018-03-11] MEDS ORDERED: LOPERAMIDE HCL 2 MG CAPSULE PO PRN (23:38)
[2018-03-11] MEDS ORDERED: MAG HYDROX/AL HYDROX/SIMETH 30 ML UNIT-DOSE CUP PO PRN (23:38)
[2018-03-11] MEDS ORDERED: MAGNESIUM HYDROX 2400MG/30ML ORAL SUSPENSION 30 ML CUP PO PRN (23:38)
[2018-03-11] MEDS ORDERED: guaiFENesin/D-METHORPHAN HB 10 ML UNIT-DOSE CUPS PO PRN (23:38)
[2018-03-11] MEDS ORDERED: NICOTINE POLACRILEX 2 MG GUM BC PRN (23:38)
[2018-03-11] MEDS ORDERED: IBUPROFEN 400 MG TABLET (FP) PO PRN (23:38)
[2018-03-11] MEDS ORDERED: diazePAM 5 MG TABLET PO PRN ×2 (23:38→23:44)
[2018-03-11] MEDS ORDERED: P-EPHED 60MG/TRIPROLIDI 2.5MG TABLET PO PRN (23:38)
[2018-03-11] MEDS ORDERED: ACETAMINOPHEN 325 MG TABLET (FP) PO PRN (23:38)
[2018-03-11] MEDS ORDERED: MAGNESIUM CITRATE 300 ML BOTTLE PO PRN (23:38)
[2018-03-12] MEDS: diazePAM 5 MG TABLET PO SCH ×8 (06:08→22:24)
[2018-03-12] MEDS ORDERED: diazePAM 5 MG TABLET PO ONE (06:45)
[2018-03-12] MEDS ORDERED: diazePAM 5 MG TABLET PO PRN (06:45)
[2018-03-12] MEDS: PRENATAL VITAMINS W/ FOLIC ACID TABLET (FP) PO SCH (10:23)
[2018-03-12] MEDS: NICOTINE 14 MG/24 HOURS TOPICAL PATCH TD SCH (10:23)
[2018-03-12 10:55] LABS: RBC 5.19 M/mm3 (4.00-5.60)
[2018-03-12 10:58] LABS: HEMATOCRIT 36.8 % (35.4-49); HEMOGLOBIN 11.6 GM/dL (11.7-16.9); MCH 22.4 pg (25.7-33.7); MCHC 31.5 g/dl (32.0-35.9); MEAN CELL VOLUME 70.9 fl (80-96); PLATELET COUNT 252 K/MM3 (134-434); RDW 17.1 % (11.9-15.9); WHITE BLOOD COUNT 3.8 K/mm3 (4.0-10.0)
[2018-03-12 11:25] LABS: CHLORIDE 109 mmol/L (98-107); POTASSIUM 4.7 mmol/L (3.5-5.1); SODIUM 145 mmol/L (136-145)
[2018-03-12 11:43] LABS: ALBUMIN 3.1 g/dl (3.4-5.0); ALK PHOS 61 U/L (45-117); ANION GAP 10 MMOL/L (8-16); BILIRUBIN,TOTAL 0.3 mg/dL (0.2-1.0); BLOOD UREA NITROGEN 11 mg/dL (7-18); CALCIUM 8.7 mg/dL (8.5-10.1); CO2 26 mmol/L (21-32); CREATININE 0.9 mg/dL (0.55-1.3); GLUCOSE,RANDOM 82 mg/dL (74-106); SGOT/AST 15 U/L (15-37); SGPT/ALT 24 U/L (13-61); TOT PROT 5.8 g/dl (6.4-8.2)
--- NOTE | 2018-03-12 14:07 | CONSULT ---
[facility] Psychiatric Consult - Data Date of interview: 03/12/18 Admission source: [facility] Identifying data: Approached at bedside or psychiatric evaluation.Patient refused.
--- NOTE | 2018-03-12 14:11 | PN ---
[facility] CIWA - CIWA Score Nausea/Vomitin-No Nausea/No Vomiting Muscle Tremors: 1-None Visible, but [place] Anxiety: 1-Mildly Anxious Agitation: 1-Slight > Activity Paroxysmal Sweats: No Perspiration Orientation: 0-Oriented Tacttile Disturbances: 0-None Auditory Disturbances: 0-None Visual Disturbances: 0-None Headache: 0-None Present CIWA-Ar Total Score: 3 [facility] Progress Note (SOAP) Subjective: pt without complaints, doing well with detox protocol O: Vital Signs - 24 hr 03/11/18 03/12/18 03/12/18 20:42 01:21 03:30 Temperature 99.2 F 97.9 F Pulse Rate 89 70 Respiratory 18 18 18 Rate Blood Pressure 102/63 126/76 03/12/18 03/12/18 07:37 08:45 Temperature 97.9 F 97.9 F Pulse Rate 64 67 Respiratory 18 16 Rate Blood Pressure 117/71 134/88 Laboratory Tests 03/12/18 03/12/18 03/12/18 07:50 07:50 07:50 WBC 3.8 L RBC 5.19 Hgb 11.6 L Hct 36.8 MCV 70.9 L MCH 22.4 L MCHC 31.5 L RDW 17.1 H Plt Count 252 MPV 9.0 D Sodium 145 Potassium 4.7 Chloride 109 H Carbon Dioxide 26 Anion Gap 10 BUN 11 Creatinine 0.9 Creat Clearance w eGFR > 60 Random Glucose 82 Calcium 8.7 Total Bilirubin 0.3 AST 15 ALT 24 Alkaline Phosphatase 61 Total Protein 5.8 L Albumin 3.1 L RPR Titer Nonreactive nl HCt low MCV, high RDW a/p: continue alcohol detox protocol
[2018-03-12] MEDS: THIAMINE HCL 100 MG TABLET (FP) PO SCH (22:24)
[2018-03-13] MEDS: diazePAM 5 MG TABLET PO SCH ×3 (07:00→23:03)
[2018-03-13] MEDS ORDERED: diazePAM 5 MG TABLET PO SCH ×2 (10:00)
[2018-03-13] MEDS: NICOTINE 14 MG/24 HOURS TOPICAL PATCH TD SCH (10:17)
[2018-03-13] MEDS: PRENATAL VITAMINS W/ FOLIC ACID TABLET (FP) PO SCH (10:17)
--- NOTE | 2018-03-13 12:07 | PN ---
[facility] CIWA - CIWA Score Nausea/Vomitin-No Nausea/No Vomiting Muscle Tremors: 3 Anxiety: 2 Agitation: 3 Paroxysmal Sweats: 1-Minimal Palms Moist Orientation: 0-Oriented Tacttile Disturbances: 1-Very Mild Itch/Numbness Auditory Disturbances: 0-None Visual Disturbances: 0-None Headache: 0-None Present CIWA-Ar Total Score: 10 S Progress Note (SOAP) Subjective: mild tremor and gi distress sweat social with peers in day room Objective: 03/13/18 12:06 Vital Signs Temperature 98.1 F 03/13/18 09:23 Pulse Rate 72 03/13/18 09:23 Respiratory Rate 18 03/13/18 09:23 Blood Pressure 133/72 03/13/18 09:23 O2 Sat by Pulse Oximetry (%) Laboratory Last Values WBC 3.8 K/mm3 (4.0-10.0) L 03/12/18 07:50 RBC 5.19 M/mm3 (4.00-5.60) 03/12/18 07:50 Hgb 11.6 GM/dL (11.7-16.9) L 03/12/18 07:50 Hct 36.8 % (35.4-49) 03/12/18 07:50 MCV 70.9 fl (80-96) L 03/12/18 07:50 MCH 22.4 pg (25.7-33.7) L 03/12/18 07:50 MCHC 31.5 g/dl (32.0-35.9) L 03/12/18 07:50 RDW 17.1 % (11.9-15.9) H 03/12/18 07:50 Plt Count 252 K/MM3 (134-434) 03/12/18 07:50 MPV 9.0 fl (7.5-11.1) D 03/12/18 07:50 Sodium 145 mmol/L (136-145) 03/12/18 07:50 Potassium 4.7 mmol/L (3.5-5.1) 03/12/18 07:50 Chloride 109 mmol/L (98-107) H 03/12/18 07:50 Carbon Dioxide 26 mmol/L (21-32) 03/12/18 07:50 Anion Gap 10 MMOL/L (8-16) 03/12/18 07:50 BUN 11 mg/dL (7-18) 03/12/18 07:50 Creatinine 0.9 mg/dL (0.55-1.3) 03/12/18 07:50 Creat Clearance w eGFR > 60 (>60) 03/12/18 07:50 Random Glucose 82 mg/dL (74-106) 03/12/18 07:50 Calcium 8.7 mg/dL (8.5-10.1) 03/12/18 07:50 Total Bilirubin 0.3 mg/dL (0.2-1.0) 03/12/18 07:50 AST 15 U/L (15-37) 03/12/18 07:50 ALT 24 U/L (13-61) 03/12/18 07:50 Alkaline Phosphatase 61 U/L (45-117) 03/12/18 07:50 Total Protein 5.8 g/dl (6.4-8.2) L 03/12/18 07:50 Albumin 3.1 g/dl (3.4-5.0) L 03/12/18 07:50 RPR Titer Nonreactive (NONREACTIVE) 03/12/18 07:50 lab noted Assessment: 03/13/18 12:07 withdrawal sx Plan: continue detox
[2018-03-13 18:10] LABS: URINE APPEARANCE CLEAR; URINE BILIRUBIN NEGATIVE (<2.0 mg/dL); URINE COLOR STRAW; URINE GLUCOSE (UA) NEGATIVE (NEGATIVE); URINE KETONE NEGATIVE (NEGATIVE); URINE LEUK ESTERASE NEGATIVE (NEGATIVE); URINE NITRITE NEGATIVE (NEGATIVE); URINE PROTEIN NEGATIVE (NEGATIVE); URINE UROBILINOGEN NEGATIVE mg/dL (0.2-1.0)
--- NOTE | 2018-03-13 22:32 | EKG ---
Test Reason : Blood Pressure : / mmHG Vent. Rate : 067 BPM Atrial Rate : 067 BPM P-R Int : 194 ms QRS Dur : 108 ms QT Int : 414 ms P-R-T Axes : 068 053 063 degrees QTc Int : 437 ms NORMAL SINUS RHYTHM NORMAL ECG WHEN COMPARED WITH ECG OF 05-FEB-2018 00:05, ST ELEVATION NOW PRESENT IN ANTERIOR LEADS Confirmed by CHRISTIANO GONZALEZ MD ([id number]) on 03/13/2018 10:31:35 PM Referred By: Confirmed By:CHRISTIANO GONZALEZ MD
[2018-03-13] MEDS: THIAMINE HCL 100 MG TABLET (FP) PO SCH (23:02)
--- NOTE | 2018-03-14 08:31 | DS ---
[facility] Detox Discharge Summary Admission Date: 03/11/18 Discharge Date: 03/14/18 - History Present History: Alcohol Dependence Additional Comments: 42 years old male admitted on 03/11/18 for alcohol withdrawal sx reported feeling better today wants to return to [facility] for medical mental and addiction issues patient has haldol IM two weeks ago and agrees to have next IM in two more weeks alert oriented x 3 no acute distress denies alcohol withdrawal sx - Physical Exam Results Vital Signs: Vital Signs Temperature 97.7 F 03/14/18 06:00 Pulse Rate 55 L 03/14/18 06:00 Respiratory Rate 18 03/14/18 06:00 Blood Pressure 118/71 03/14/18 06:00 O2 Sat by Pulse Oximetry (%) Pertinent Admission Physical Exam Findings: alcohol withdrawal sx Vital Signs Temperature 98.2 F 03/14/18 09:17 Pulse Rate 66 03/14/18 09:17 Respiratory Rate 20 03/14/18 09:17 Blood Pressure 132/73 03/14/18 09:17 O2 Sat by Pulse Oximetry (%) Laboratory Last Values WBC 3.8 K/mm3 (4.0-10.0) L 03/12/18 07:50 RBC 5.19 M/mm3 (4.00-5.60) 03/12/18 07:50 Hgb 11.6 GM/dL (11.7-16.9) L 03/12/18 07:50 Hct 36.8 % (35.4-49) 03/12/18 07:50 MCV 70.9 fl (80-96) L 03/12/18 07:50 MCH 22.4 pg (25.7-33.7) L 03/12/18 07:50 MCHC 31.5 g/dl (32.0-35.9) L 03/12/18 07:50 RDW 17.1 % (11.9-15.9) H 03/12/18 07:50 Plt Count 252 K/MM3 (134-434) 03/12/18 07:50 MPV 9.0 fl (7.5-11.1) D 03/12/18 07:50 Sodium 145 mmol/L (136-145) 03/12/18 07:50 Potassium 4.7 mmol/L (3.5-5.1) 03/12/18 07:50 Chloride 109 mmol/L (98-107) H 03/12/18 07:50 Carbon Dioxide 26 mmol/L (21-32) 03/12/18 07:50 Anion Gap 10 MMOL/L (8-16) 03/12/18 07:50 BUN 11 mg/dL (7-18) 03/12/18 07:50 Creatinine 0.9 mg/dL (0.55-1.3) 03/12/18 07:50 Creat Clearance w eGFR > 60 (>60) 03/12/18 07:50 Random Glucose 82 mg/dL (74-106) 03/12/18 07:50 Calcium 8.7 mg/dL (8.5-10.1) 03/12/18 07:50 Total Bilirubin 0.3 mg/dL (0.2-1.0) 03/12/18 07:50 AST 15 U/L (15-37) 03/12/18 07:50 ALT 24 U/L (13-61) 03/12/18 07:50 Alkaline Phosphatase 61 U/L (45-117) 03/12/18 07:50 Total Protein 5.8 g/dl (6.4-8.2) L 03/12/18 07:50 Albumin 3.1 g/dl (3.4-5.0) L 03/12/18 07:50 Urine Color Straw 03/13/18 17:34 Urine Appearance Clear 03/13/18 17:34 Urine pH 7.0 (5.0-8.0) D 03/13/18 17:34 Ur Specific [place] 1.008 (1.001-1.035) 03/13/18 17:34 Urine Protein Negative (NEGATIVE) 03/13/18 17:34 Urine Glucose (UA) Negative (NEGATIVE) 03/13/18 17:34 Urine Ketones Negative (NEGATIVE) 03/13/18 17:34 Urine Blood Negative (NEGATIVE) 03/13/18 17:34 Urine Nitrite Negative (NEGATIVE) 03/13/18 17:34 Urine Bilirubin Negative (<2.0 mg/dL) 03/13/18 17:34 Urine Urobilinogen Negative mg/dL (0.2-1.0) 03/13/18 17:34 Ur Leukocyte Esterase Negative (NEGATIVE) 03/13/18 17:34 RPR Titer Nonreactive (NONREACTIVE) 03/12/18 07:50 lab noted - Treatment Hospital Course: Detox Protocol Followed, Detoxed Safely, Responded well, Discharged Condition Good, Rehab Referral Accepted Patient has Accepted a Rehab Referral to: [facility] - Medication Discharge Medications: Ambulatory Orders Haloperidol Decanoate [Haldol Decanoate (Long-Acting) -] 500 mg IM MONTHLY 03/11 - Diagnosis (1) Alcohol dependence with uncomplicated withdrawal Status: Acute (2) Asthma Status: Chronic Qualifiers: Asthma severity: mild Asthma persistence: intermittent Asthma complication type: uncomplicated Qualified Code(s): J45.20 - Mild intermittent asthma, uncomplicated (3) GERD (gastroesophageal reflux disease) Status: Chronic Qualifiers: Esophagitis presence: with esophagitis Qualified Code(s): K21.0 - Gastro- esophageal reflux disease with esophagitis (4) HTN (hypertension) Status: Chronic Qualifiers: Hypertension type: essential hypertension Qualified Code(s): I10 - Essential (primary) hypertension (5) Nicotine dependence Status: Acute Qualifiers: Nicotine product type: cigarettes Substance use status: in withdrawal Qualified Code(s): F17.213 - Nicotine dependence, cigarettes, with withdrawal (6) Schizophrenia Status: Suspected Qualifiers: Schizophrenia type: paranoid schizophrenia Qualified Code(s): F20.0 - Paranoid schizophrenia - AMA Did Patient Leave Against Medical Advice: No
[2018-03-14 09:17] VITALS: BP 132/73; PULSE 66; TEMP 98.2
[2018-03-14] MEDS ORDERED: diazePAM 5 MG TABLET PO SCH (10:00)
[2018-03-14] MEDS: PRENATAL VITAMINS W/ FOLIC ACID TABLET (FP) PO SCH (10:56)
[2018-03-14] MEDS: NICOTINE 14 MG/24 HOURS TOPICAL PATCH TD SCH (11:00)
[2018-03-15] MEDS ORDERED: diazePAM 5 MG TABLET PO SCH ×2 (10:00)
[2018-03-16] MEDS ORDERED: diazePAM 5 MG TABLET PO SCH (10:00)
== END 2018-03-14 12:02 | disposition home or self-care (01) | DRG 774 ==
LOC: YASAS 18:40 → Y6N 23:53
PROC: HZ2ZZZZ Detoxification Services for Substance Abuse Treatment (ICD-10-PCS; principal; 2018-03-11)
DX: F10.230 Alcohol dependence with withdrawal, uncomplicated (principal); F14.20 Cocaine dependence, uncomplicated; F12.20 Cannabis dependence, uncomplicated; F17.213 Nicotine dependence, cigarettes, with withdrawal; F41.9 Anxiety disorder, unspecified; F20.0 Paranoid schizophrenia; F32.9 Major depressive disorder, single episode, unspecified; I10 Essential (primary) hypertension; J45.20 Mild intermittent asthma, uncomplicated; K21.9 Gastro-esophageal reflux disease without esophagitis; H91.93 Unspecified hearing loss, bilateral; Z86.19 Personal history of other infectious and parasitic diseases
CPT/HCPCS: 36415; 80053; 81003; 85027; 86593; 93005; 93010

== ENCOUNTER 2018-04-15 18:53 | Inpatient (IN) | payer OTHER ==
[2018-04-15 19:15] VITALS: BMI 22.4
--- NOTE | 2018-04-15 21:51 | HP ---
CIWA Score - CIWA Score Nausea/Vomitin-Mild Nausea/No Vomiting Muscle Tremors: 4-Moderate,w/Arms Extend Anxiety: 3 Agitation: 3 Paroxysmal Sweats: 1-Minimal Palms Moist Orientation: 0-Oriented Tacttile Disturbances: 0-None Auditory Disturbances: 0-None Visual Disturbances: 0-None Headache: 4-Moderately Severe CIWA-Ar Total Score: 16 Admission ROS BHS - HPI Chief Complaint: Alcohol withdrawal symptoms Allergies/Adverse Reactions: Allergies Allergy/AdvReac Type Severity Reaction Status Date / Time No Known Allergies Allergy Verified 04/15/18 21:30 History of Present Illness: 42 years old male with a long history of alcohol dependence is seeking admission to detox. Patient has been in previous detox and reports a year of sobriety. He has medical history of hypertension, Asthma, GERD, Syphilis ( treated), depression, hearing difficulties both ear and anxiety. He denies suicidal ideation at this time Exam Limitations: No Limitations - Ebola screening Have you traveled outside of the country in the last 21 days: No (N) Have you had contact with anyone from an Ebola affected area: No Have you been sick,other than usual withdrawal symptoms: Yes (TEMP 100.4 COUGHING AND RUNNY NOSE) Do you have a fever: No - Review of Systems Constitutional: Loss of Appetite, Malaise, Night Sweats, Changes in sleep EENT: reports: No Symptoms Reported Respiratory: reports: No Symptoms reported Cardiac: reports: No Symptoms Reported GI: reports: Nausea, Poor Appetite, Poor Fluid Intake, Vomiting, Abdominal cramping : reports: No Symptoms Reported Musculoskeletal: reports: Back Pain Integumentary: reports: Dryness Neuro: reports: Tremors Endocrine: reports: No Symptoms Reported Hematology: reports: No Symptoms Reported Psychiatric: reports: Orientated x3, Agitated Other Systems: Reviewed and Negative Patient History - Patient Medical History Hx Anemia: No Hx Asthma: Yes (ALBUTEROL - last exacerbation years ago. ) Hx Chronic Obstructive Pulmonary Disease (COPD): No Hx Cancer: No Hx Cardiac Disorders: No Hx Congestive Heart Failure: No Hx Hypertension: Yes (VERAPRAMIL - states compliant w/ meds) Hx Hypercholesterolemia: No Hx Pacemaker: No HX Cerebrovascular Accident: No Hx Seizures: No Hx Diabetes: No Hx Gastrointestinal Disorders: Yes (GERD - resolves on own) Hx Liver Disease: No Hx Genitourinary Disorders: No Hx Sexually Transmitted Disorders: Yes (SYPHYLLIS AND TREATED - years ago) Hx Renal Disease (ESRD): No Hx Thyroid Disease: No Hx Human Immunodeficiency Virus (HIV): No (NEGATIVE 2016) Hx Hepatitis C: No (NEGATIVE 2016) Hx Depression: Yes ( Denies suicide attempt or suicidal ideation at this time) Hx Suicide Attempt: No Hx Bipolar Disorder: No Hx Schizophrenia: Yes ( on meds. Sees a [facility] at [facility]) - Patient Surgical History Past Surgical History: Yes Hx Neurologic Surgery: No Hx Cataract Extraction: No Hx Cardiac Surgery: No Hx Lung Surgery: No Hx Breast Surgery: No Hx Breast Biopsy: No Hx Abdominal Surgery: No Hx Appendectomy: No Hx Cholecystectomy: No Hx Genitourinary Surgery: No Hx Section: No Hx Orthopedic Surgery: Yes (NECK SURGERY 2010) Anesthesia Reaction: No - PPD History Previous Implant?: Yes Documented Results: Negative w/proof Implanted On Prior [facility] Admission?: Yes Date: 03/14/18 PPD to be Administered?: No - Reproductive History Patient is a Female of Child Bearing Age (11 -55 yrs old): No (Male) - Smoking Cessation Smoking history: Current every day smoker Have you smoked in the past 12 months: Yes Aproximately how many cigarettes per day: 20 Cigars Per Day: 0 Hx Chewing Tobacco Use: No Initiated information on smoking cessation: Yes 'Breaking Loose' booklet given: 04/15/18 - Substance & Tx. History Hx Alcohol Use: Yes Hx Substance Use: Yes Substance Use Type: Alcohol, Cocaine Hx Substance Use Treatment: Yes ([facility]) - Substances Abused Alcohol Route: Oral Frequency: Daily Amount used: BEER 6 PACKS Age of first use: 14 Date of Last Use: 04/15/18 Family Disease History - Family Disease History Family History: Denies Admission Physical Exam S - Vital Signs Vital Signs: Vital Signs - 24 hr 04/15/18 19:12 Temperature 100.4 F H Pulse Rate 101 H Respiratory 18 Rate Blood Pressure 119/83 - Physical General Appearance: Yes: Moderate Distress, Tremorous, Irritable, Sweating, Anxious HEENTM: Yes: EOMI, Normal ENT Inspection, Normocephalic, Normal Voice, KWAN Respiratory: Yes: Lungs Clear, Normal Breath Sounds, No Respiratory Distress Neck: Yes: Supple Breast: Yes: Breast Exam Deferred Cardiology: Yes: Tachycardia Abdominal: Yes: Normal Bowel Sounds Genitourinary: Yes: Within Normal Limits Back: Yes: Normal Inspection Musculoskeletal: Yes: Back pain, Muscle Pain Extremities: Yes: Tremors Neurological: Yes: Alert, Normal Mood/Affect Integumentary: Yes: Warm Lymphatic: Yes: Within Normal Limits - Diagnostic (1) Alcohol dependence with uncomplicated withdrawal Current Visit: Yes Status: Chronic (2) Nicotine dependence Current Visit: Yes Status: Chronic Qualifiers: Nicotine product type: cigarettes Substance use status: in withdrawal Qualified Code(s): F17.213 - Nicotine dependence, cigarettes, with withdrawal (3) Anxiety Current Visit: Yes Status: Chronic (4) Asthma Current Visit: Yes Status: Chronic Qualifiers: Asthma severity: mild Asthma persistence: intermittent Asthma complication type: uncomplicated Qualified Code(s): J45.20 - Mild intermittent asthma, uncomplicated (5) Cocaine dependence, uncomplicated Current Visit: Yes Status: Chronic (6) Depression Current Visit: Yes Status: Chronic Qualifiers: Depression Type: unspecified Qualified Code(s): F32.9 - Major depressive disorder, single episode, unspecified (7) GERD (gastroesophageal reflux disease) Current Visit: Yes Status: Chronic Qualifiers: Esophagitis presence: with esophagitis Qualified Code(s): K21.0 - Gastro- esophageal reflux disease with esophagitis (8) HTN (hypertension) Current Visit: Yes Status: Chronic Qualifiers: Hypertension type: essential hypertension Qualified Code(s): I10 - Essential (primary) hypertension (9) Hearing difficulty of both ears Current Visit: Yes Status: Chronic Comment: SOUNDS ARE MUFFLED (10) History of asthma Current Visit: Yes Status: Chronic Cleared for Admission S - Detox or Rehab [facility] Level of Care: Medically Managed Detox Regimen/Protocol: Librium [facility] Breath Alcohol Content Breath Alcohol Content: 0 Urine Drug Screen - Results Drug Screen Negative: No Urine Drug Screen Results: ANA ROSA-Cocaine
[2018-04-15] MEDS ORDERED: MAGNESIUM CITRATE 300 ML BOTTLE PO PRN (21:59)
[2018-04-15] MEDS ORDERED: NICOTINE POLACRILEX 2 MG GUM BC PRN (21:59)
[2018-04-15] MEDS ORDERED: ACETAMINOPHEN 325 MG TABLET (FP) PO PRN (21:59)
[2018-04-15] MEDS ORDERED: MAGNESIUM HYDROX 2400MG/30ML ORAL SUSPENSION 30 ML CUP PO PRN (21:59)
[2018-04-15] MEDS ORDERED: P-EPHED 60MG/TRIPROLIDI 2.5MG TABLET PO PRN (21:59)
[2018-04-15] MEDS ORDERED: IBUPROFEN 400 MG TABLET (FP) PO PRN (21:59)
[2018-04-15] MEDS ORDERED: MAG HYDROX/AL HYDROX/SIMETH 30 ML UNIT-DOSE CUP PO PRN (21:59)
[2018-04-15] MEDS ORDERED: LOPERAMIDE HCL 2 MG CAPSULE PO PRN (21:59)
[2018-04-15] MEDS ORDERED: MENTHOL/PHENOL 1 EACH UD MM PRN (21:59)
[2018-04-15] MEDS ORDERED: chlordiazePOXIDE HCL 25 MG CAPSULE PO PRN (21:59)
[2018-04-15] MEDS ORDERED: guaiFENesin/D-METHORPHAN HB 10 ML UNIT-DOSE CUPS PO PRN (21:59)
[2018-04-15] MEDS ORDERED: MELATONIN 5 MG TABLETS PO PRN (22:00)
[2018-04-15] MEDS: chlordiazePOXIDE HCL 25 MG CAPSULE PO SCH (23:00)
[2018-04-15] MEDS: THIAMINE HCL 100 MG TABLET (FP) PO SCH (23:00)
[2018-04-16] MEDS: chlordiazePOXIDE HCL 25 MG CAPSULE PO SCH ×3 (06:45→18:06)
[2018-04-16] MEDS: PRENATAL VITAMINS W/ FOLIC ACID TABLET (FP) PO SCH (10:13)
[2018-04-16] MEDS: NICOTINE 14 MG/24 HOURS TOPICAL PATCH TD SCH (10:14)
[2018-04-16 11:10] LABS: ALBUMIN 3.2 g/dl (3.4-5.0); ALK PHOS 67 U/L (45-117); ANION GAP 7 MMOL/L (8-16); BILIRUBIN,TOTAL 0.2 mg/dL (0.2-1); BLOOD UREA NITROGEN 10 mg/dL (7-18); CALCIUM 8.4 mg/dL (8.5-10.1); CHLORIDE 106 mmol/L (98-107); CO2 27 mmol/L (21-32); GLUCOSE,RANDOM 86 mg/dL (74-106); HEMATOCRIT 38.2 % (35.4-49); HEMOGLOBIN 11.9 GM/dL (11.7-16.9); MCH 22.2 pg (25.7-33.7); MCHC 31.2 g/dl (32.0-35.9); MEAN CELL VOLUME 71.1 fl (80-96); MEAN PLT VOLUME 8.4 fl (7.5-11.1); PLATELET COUNT 328 K/MM3 (134-434); POTASSIUM 4.4 mmol/L (3.5-5.1); RBC 5.37 M/mm3 (4.00-5.60); RDW 17.3 % (11.9-15.9); SGOT/AST 12 U/L (15-37); SGPT/ALT 23 U/L (13-61); SODIUM 140 mmol/L (136-145); TOT PROT 6.4 g/dl (6.4-8.2); WHITE BLOOD COUNT 6.2 K/mm3 (4.0-10.0)
[2018-04-16] MEDS ORDERED: TETRAHYDROZOLINE HCL EYE DROPS OU PRN (13:32)
--- NOTE | 2018-04-16 16:00 | CONSULT ---
[facility] Psychiatric Consult - Data Date of interview: 04/16/18 Admission source: [facility] Identifying data: This is one of multiple admissions to [facility] for this 42 y/ o AA male seeking detoxification treatment, on , for alcohol,cannabis and cocaine (crack) dependence. Patient is single without children, homeless, unemployed and supported on SSI benefits. Substance Abuse History: Confirmed by the patient in this interview. Details in current [facility] report : Smoking history: Current every day smoker. Have you smoked in the past 12 months: Yes. Aproximately how many cigarettes per day: 20. Cigars Per Day: 0. Hx Chewing Tobacco Use: No. Initiated information on smoking cessation: Yes. 'Breaking Loose' booklet given: 04/15/18. - Substance & Tx. History. Hx Alcohol Use: Yes. Hx Substance Use: Yes. Substance Use Type : Alcohol, Cocaine. Hx Substance Use Treatment: Yes ([facility]). - Substances Abused. Alcohol. Route: Oral. Frequency: Daily. Amount used: BEER 6 PACKS. Age of first use: 14. Date of Last Use: 04/15/18 Medical History: Past history of treatment for syphilis, hypertension, GERD, bronchial asthma, hearing impediment (bilateral) and a history of neck surgery ( 2010). Psychiatric History: Long standing history of mental illness. Patient has been diagnosed with Paranoid Schizophrenia. Patient reports a history of multiple psychiatric hospitalizations ([facility], [facility] in [place]). Patient declares maintenance on decanoate haloperidol + cogentin (doses not recalled by the patient). Last injection of decanoate dispensed THREE weeks ago, according to the patient. Mr Carpenter continues to get his psychiatric OPD services at the [facility] Patient denies history of suicide attempts. Physical/Sexual Abuse/Trauma History: Patient denies. Additional Comment: Urine Drug Screen Results: ANA ROSA-Cocaine. Noted. Mental Status Exam - Mental Status Exam Alert and Oriented to: Time, Place, Person Cognitive Function: Good Patient Appearance: Unkempt, Disheveled Mood: Nervous, Withdrawn Affect: Constricted Patient Behavior: Passive, Fatigued, Cooperative Speech Pattern: Clear Voice Loudness: Normal Thought Process: Goal Oriented Thought Disorder: Bizarre Hallucinations: Denies Suicidal Ideation: Denies Homicidal Ideation: Denies Insight/Judgement: Poor Sleep: Poorly, Difficulty falling asleep (requests zolpidem at bedtime) Appetite: Good Muscle strength/Tone: Normal Gait/Station: Normal Psychiatric Findings - Problem List ([place] 1, 2,3) (1) Alcohol dependence with uncomplicated withdrawal Current Visit: Yes Status: Acute (2) Cocaine dependence, uncomplicated Current Visit: Yes Status: Acute (3) Nicotine dependence Current Visit: Yes Status: Chronic Qualifiers: Nicotine product type: cigarettes Substance use status: in withdrawal Qualified Code(s): F17.213 - Nicotine dependence, cigarettes, with withdrawal (4) Substance induced mood disorder Current Visit: Yes Status: Acute (5) Schizophrenia Current Visit: Yes Status: Chronic Qualifiers: Schizophrenia type: paranoid schizophrenia Qualified Code(s): F20.0 - Paranoid schizophrenia (6) Insomnia Current Visit: Yes Status: Chronic Qualifiers: Insomnia type: unspecified Qualified Code(s): G47.00 - Insomnia, unspecified - Initial Treatment Plan Initial Treatment Plan: Psychoeducation.Sleep hygiene. Psychotherapy : group, individual, supportive. Contact [facility] OPD clinic for verification of exact dose of decanoate haloperidol + date of last injection. In the meantime , will continue with cogentin 1 mg po hs. Side effects/benefits discussed with the patient. Mr Carpenter is reminded of the importance of adherence to aftercare + observance of sobriety. Encouraged to enlist in AA fellowship. Insomnia is addressed with ambien 10 mg po hs prn (short-term utilization : duration of detoxification). Patient informed of risk of parasomnias. Detoxification in progress. Mr Carpenter is in agreement with this plan of care. Observation.
--- NOTE | 2018-04-16 18:09 | EKG ---
Test Reason : Blood Pressure : / mmHG Vent. Rate : 076 BPM Atrial Rate : 076 BPM P-R Int : 184 ms QRS Dur : 092 ms QT Int : 380 ms P-R-T Axes : 069 048 055 degrees QTc Int : 427 ms NORMAL SINUS RHYTHM NORMAL ECG WHEN COMPARED WITH ECG OF 12-MAR-2018 00:50, NO SIGNIFICANT CHANGE WAS FOUND Confirmed by PRADEEP ESPINOSA MD ([id number]) on 04/16/2018 6:08:59 PM Referred By: Confirmed By:PRADEEP ESPINOSA MD
--- NOTE | 2018-04-16 22:02 | PN ---
[facility] CIWA - CIWA Score Nausea/Vomitin Muscle Tremors: 2 Anxiety: 3 Agitation: 3 Paroxysmal Sweats: 3 Orientation: 0-Oriented Tacttile Disturbances: 0-None Auditory Disturbances: 0-None Visual Disturbances: 0-None Headache: 0-None Present CIWA-Ar Total Score: 13 BHS Progress Note (SOAP) Subjective: sleep interruption sweats Objective: 04/16/18 22:02 A & Ox 3 Ambulating steadily on unit Assessment: 04/16/18 22:02 withdrawal sx Plan: continue detox
[2018-04-17] MEDS: THIAMINE HCL 100 MG TABLET (FP) PO SCH ×2 (00:13→23:03)
[2018-04-17] MEDS: BENZTROPINE MESYLATE 1 MG TABLET (FP) PO SCH ×2 (00:13→23:03)
[2018-04-17] MEDS: chlordiazePOXIDE HCL 25 MG CAPSULE PO SCH ×4 (00:13→17:58)
[2018-04-17] MEDS: PRENATAL VITAMINS W/ FOLIC ACID TABLET (FP) PO SCH (10:14)
[2018-04-17] MEDS: NICOTINE 14 MG/24 HOURS TOPICAL PATCH TD SCH (10:15)
--- NOTE | 2018-04-17 12:13 | PN ---
[facility] CIWA - CIWA Score Nausea/Vomitin-Mild Nausea/No Vomiting Muscle Tremors: 3 Anxiety: 2 Agitation: 3 Paroxysmal Sweats: 1-Minimal Palms Moist Orientation: 0-Oriented Tacttile Disturbances: 0-None Auditory Disturbances: 0-None Visual Disturbances: 0-None Headache: 1-Very Mild CIWA-Ar Total Score: 11 S Progress Note (SOAP) Subjective: sweat tremor restlessness anxiety Objective: 04/17/18 12:14 Vital Signs Temperature 98.1 F 04/17/18 09:41 Pulse Rate 89 04/17/18 09:41 Respiratory Rate 16 04/17/18 09:41 Blood Pressure 134/81 04/17/18 09:41 O2 Sat by Pulse Oximetry (%) Laboratory Last Values WBC 6.2 K/mm3 (4.0-10.0) 04/16/18 08:00 RBC 5.37 M/mm3 (4.00-5.60) 04/16/18 08:00 Hgb 11.9 GM/dL (11.7-16.9) 04/16/18 08:00 Hct 38.2 % (35.4-49) 04/16/18 08:00 MCV 71.1 fl (80-96) L 04/16/18 08:00 MCH 22.2 pg (25.7-33.7) L 04/16/18 08:00 MCHC 31.2 g/dl (32.0-35.9) L 04/16/18 08:00 RDW 17.3 % (11.9-15.9) H 04/16/18 08:00 Plt Count 328 K/MM3 (134-434) D 04/16/18 08:00 MPV 8.4 fl (7.5-11.1) 04/16/18 08:00 Sodium 140 mmol/L (136-145) 04/16/18 08:00 Potassium 4.4 mmol/L (3.5-5.1) 04/16/18 08:00 Chloride 106 mmol/L (98-107) 04/16/18 08:00 Carbon Dioxide 27 mmol/L (21-32) 04/16/18 08:00 Anion Gap 7 MMOL/L (8-16) L 04/16/18 08:00 BUN 10 mg/dL (7-18) 04/16/18 08:00 Creatinine 1.0 mg/dL (0.55-1.3) 04/16/18 08:00 Creat Clearance w eGFR > 60 (>60) 04/16/18 08:00 Random Glucose 86 mg/dL (74-106) 04/16/18 08:00 Calcium 8.4 mg/dL (8.5-10.1) L 04/16/18 08:00 Total Bilirubin 0.2 mg/dL (0.2-1) 04/16/18 08:00 AST 12 U/L (15-37) L 04/16/18 08:00 ALT 23 U/L (13-61) 04/16/18 08:00 Alkaline Phosphatase 67 U/L (45-117) 04/16/18 08:00 Total Protein 6.4 g/dl (6.4-8.2) 04/16/18 08:00 Albumin 3.2 g/dl (3.4-5.0) L 04/16/18 08:00 RPR Titer Nonreactive (NONREACTIVE) 04/16/18 08:00 lab noted Assessment: 04/17/18 12:14 withdrawal sx Plan: continue detox
[2018-04-17] MEDS: chlordiazePOXIDE 5 MG CAPSULE PO SCH (23:03)
[2018-04-18] MEDS: chlordiazePOXIDE 5 MG CAPSULE PO SCH ×3 (06:44→17:32)
[2018-04-18] MEDS: NICOTINE 14 MG/24 HOURS TOPICAL PATCH TD SCH (10:33)
[2018-04-18] MEDS: PRENATAL VITAMINS W/ FOLIC ACID TABLET (FP) PO SCH (10:34)
--- NOTE | 2018-04-18 10:34 | PN ---
BHS Progress Note (SOAP) Subjective: sweats body aches interrupted sleep Objective: 04/18/18 10:34 Vital Signs Temperature 98.2 F 04/18/18 09:41 Pulse Rate 79 04/18/18 09:41 Respiratory Rate 16 04/18/18 09:41 Blood Pressure 120/61 04/18/18 09:41 O2 Sat by Pulse Oximetry (%) Laboratory Tests 04/16/18 04/16/18 04/16/18 08:00 08:00 08:00 WBC 6.2 RBC 5.37 Hgb 11.9 Hct 38.2 MCV 71.1 L MCH 22.2 L MCHC 31.2 L RDW 17.3 H Plt Count 328 D MPV 8.4 Sodium 140 Potassium 4.4 Chloride 106 Carbon Dioxide 27 Anion Gap 7 L BUN 10 Creatinine 1.0 Creat Clearance w eGFR > 60 Random Glucose 86 Calcium 8.4 L Total Bilirubin 0.2 AST 12 L ALT 23 Alkaline Phosphatase 67 Total Protein 6.4 Albumin 3.2 L RPR Titer Nonreactive rest of labs pending aaox3 ambulating no acute distress 04/18/18 10:35 Assessment: 04/18/18 10:36 withdrawal sx Plan: continue detox increase fluids labs pending
[2018-04-18] MEDS: THIAMINE HCL 100 MG TABLET (FP) PO SCH (23:05)
[2018-04-18] MEDS: chlordiazePOXIDE HCL 10 MG CAPSULE PO SCH (23:05)
[2018-04-18] MEDS: BENZTROPINE MESYLATE 1 MG TABLET (FP) PO SCH (23:05)
[2018-04-19] MEDS: chlordiazePOXIDE HCL 10 MG CAPSULE PO SCH (05:53)
[2018-04-19 09:32] VITALS: BP 119/60; PULSE 82; TEMP 99.3
--- NOTE | 2018-04-19 09:49 | DS ---
[facility] Detox Discharge Summary Admission Date: 04/15/18 Discharge Date: 04/19/18 - History Present History: Alcohol Dependence, Cocaine Dependence - Physical Exam Results Vital Signs: Vital Signs Temperature 99.3 F 04/19/18 09:31 Pulse Rate 82 04/19/18 09:31 Respiratory Rate 16 04/19/18 09:31 Blood Pressure 119/60 04/19/18 09:31 O2 Sat by Pulse Oximetry (%) - Treatment Hospital Course: Detox Protocol Followed, Detoxed Safely, Responded well, Discharged Condition Good, Rehab Referral Accepted - Medication Discharge Medications: Ambulatory Orders Haloperidol Decanoate [Haldol Decanoate (Long-Acting) -] 500 mg IM MONTHLY 03/11 - Diagnosis (1) Alcohol dependence with uncomplicated withdrawal Current Visit: Yes Status: Chronic (2) Cocaine dependence, uncomplicated Current Visit: Yes Status: Chronic (3) Substance induced mood disorder Current Visit: Yes Status: Acute (4) Anxiety Current Visit: Yes Status: Chronic (5) Asthma Current Visit: Yes Status: Chronic Qualifiers: Asthma severity: mild Asthma persistence: intermittent Asthma complication type: uncomplicated Qualified Code(s): J45.20 - Mild intermittent asthma, uncomplicated (6) Depression Current Visit: Yes Status: Chronic Qualifiers: Depression Type: unspecified Qualified Code(s): F32.9 - Major depressive disorder, single episode, unspecified (7) GERD (gastroesophageal reflux disease) Current Visit: Yes Status: Chronic Qualifiers: Esophagitis presence: with esophagitis Qualified Code(s): K21.0 - Gastro- esophageal reflux disease with esophagitis (8) HTN (hypertension) Current Visit: Yes Status: Chronic Qualifiers: Hypertension type: essential hypertension Qualified Code(s): I10 - Essential (primary) hypertension (9) Hearing difficulty of both ears Current Visit: Yes Status: Chronic (10) History of asthma Current Visit: Yes Status: Chronic (11) Insomnia Current Visit: Yes Status: Chronic Qualifiers: Insomnia type: unspecified Qualified Code(s): G47.00 - Insomnia, unspecified (12) Nicotine dependence Current Visit: Yes Status: Chronic Qualifiers: Nicotine product type: cigarettes Substance use status: uncomplicated Qualified Code(s): F17.210 - Nicotine dependence, cigarettes, uncomplicated (13) Schizophrenia Current Visit: Yes Status: Chronic Qualifiers: Schizophrenia type: paranoid schizophrenia Qualified Code(s): F20.0 - Paranoid schizophrenia (14) Azotemia Current Visit: No Status: Acute (15) Cannabis dependence, uncomplicated Current Visit: No Status: Chronic (16) Opioid abuse, in remission Current Visit: No Status: Chronic - AMA Did Patient Leave Against Medical Advice: No (going home referred to outpatient)
[2018-04-19 16:43] LABS: URINE APPEARANCE CLEAR; URINE BILIRUBIN NEGATIVE (<2.0 mg/dL); URINE COLOR YELLOW; URINE GLUCOSE (UA) NEGATIVE (NEGATIVE); URINE KETONE NEGATIVE (NEGATIVE); URINE LEUK ESTERASE NEGATIVE (NEGATIVE); URINE NITRITE NEGATIVE (NEGATIVE); URINE PROTEIN NEGATIVE (NEGATIVE); URINE UROBILINOGEN NEGATIVE mg/dL (0.2-1.0)
== END 2018-04-19 09:13 | disposition home or self-care (01) | DRG 897 ==
LOC: YASAS 18:53 → Y6N 20:49
PROC: HZ2ZZZZ Detoxification Services for Substance Abuse Treatment (ICD-10-PCS; principal; 2018-04-15)
DX: F10.230 Alcohol dependence with withdrawal, uncomplicated (principal); F14.20 Cocaine dependence, uncomplicated; F20.0 Paranoid schizophrenia; F12.20 Cannabis dependence, uncomplicated; F11.11 Opioid abuse, in remission; F17.210 Nicotine dependence, cigarettes, uncomplicated; F19.24 Other psychoactive substance dependence with psychoactive substance-induced mood disorder; F41.9 Anxiety disorder, unspecified; F32.9 Major depressive disorder, single episode, unspecified; I10 Essential (primary) hypertension; J45.20 Mild intermittent asthma, uncomplicated; K21.9 Gastro-esophageal reflux disease without esophagitis; H91.8X3 Other specified hearing loss, bilateral; G47.00 Insomnia, unspecified; R79.89 Other specified abnormal findings of blood chemistry; R00.0 Tachycardia, unspecified; Z87.438 Personal history of other diseases of male genital organs
CPT/HCPCS: 36415; 80053; 81003; 85027; 86593; 93005; 93010

== ENCOUNTER 2023-09-03 11:29 | Inpatient (IN) | payer OTHER ==
[2023-09-03 12:15] VITALS: BMI 28.0
[2023-09-03] MEDS ORDERED: NICOTINE POLACRILEX 2 MG GUM BUC PRN (13:00)
[2023-09-03] MEDS ORDERED: MAG HYDROX/AL HYDROX/SIMETH 30 ML UNIT-DOSE CUP PO PRN (13:00)
[2023-09-03] MEDS ORDERED: MAGNESIUM HYDROX 2400MG/30ML ORAL SUSPENSION 30 ML CUP PO PRN (13:00)
[2023-09-03] MEDS ORDERED: ACETAMINOPHEN 325 MG TABLET (FP) PO PRN (13:00)
[2023-09-03] MEDS ORDERED: BENZOCAINE/MENTHOL (CHLORASEPTIC ) LOZENGE MM PRN (13:00)
[2023-09-03] MEDS ORDERED: NICOTINE POLACRILEX 2 MG LOZENGE BC PRN (13:00)
[2023-09-03] MEDS ORDERED: LOPERAMIDE HCL 2 MG CAPSULE PO PRN (13:00)
[2023-09-03] MEDS ORDERED: IBUPROFEN 400 MG TABLET (FP) PO PRN (13:00)
[2023-09-03] MEDS ORDERED: NALOXONE HCL 0.4 MG/ML VIAL IM PRN (13:00)
[2023-09-03] MEDS ORDERED: NALOXONE HCL (KLOXXADO) 8 MG SPRAY NS PRN (13:00)
[2023-09-03] MEDS ORDERED: hydrOXYzine PAMOATE 25 MG CAPSULE (FP) PO PRN (13:00)
[2023-09-03] MEDS ORDERED: POLYETHYLENE GLYCOL (HEALTHYLAX) 3350 17 GM PACKET PO PRN (13:00)
[2023-09-03] MEDS ORDERED: guaiFENesin 600 MG TABLET.ER (FP) PO PRN (13:00)
[2023-09-03] MEDS ORDERED: BENZONATATE 200 MG CAPSULE PO PRN (13:00)
[2023-09-03] MEDS: METOPROLOL TARTRATE 25 MG TABLET (FP) PO ONE (14:10)
[2023-09-03] MEDS ORDERED: TUBERCULIN PPD 5 TU/0.1ML VIAL ID ONE (16:31)
[2023-09-03] MEDS: THIAMINE HCL 100 MG TABLET (FP) PO SCH (21:19)
[2023-09-03] MEDS: MELATONIN 5 MG TABLETS PO SCH (21:19)
[2023-09-04] MEDS: PRENATAL VITAMINS W/ FOLIC ACID TABLET (FP) PO SCH (10:35)
[2023-09-04] MEDS: FLU VACCINE (FLULAVAL) PF 60 MCG/0.5 ML SYRINGE 2023-2024 IM ONE (12:29)
[2023-09-04] MEDS: PNEUMOC 20-VAL CONJ-DIP CRM/PF 0.5 ML SYRINGE IM ONE (12:29)
[2023-09-04 13:14] LABS: HEMATOCRIT 38.8 % (35.4-49); HEMOGLOBIN 12.2 GM/dL (11.7-16.9); MCH 23.4 pg (25.7-33.7); MCHC 31.4 g/dl (32.0-35.9); MEAN CELL VOLUME 74.6 fl (80-96); MEAN PLT VOLUME 8.7 fl (7.5-11.1); PLATELET COUNT 316 10^3/uL (134-434); RDW 18.7 % (11.9-15.9); WHITE BLOOD COUNT 4.6 K/mm3 (4.0-10.0)
[2023-09-04 13:28] LABS: CHLORIDE 113 mmol/L (98-107); POTASSIUM 4.3 mmol/L (3.5-5.1); SODIUM 143 mmol/L (136-145)
[2023-09-04 13:37] LABS: CALCIUM 8.8 mg/dL (8.5-10.1)
[2023-09-04 13:38] LABS: ALBUMIN 3.1 g/dl (3.4-5.0); ANION GAP 5 mmol/L (4-13); BLOOD UREA NITROGEN 14.1 mg/dL (7-18); CO2 25 mmol/L (21-32); GLUCOSE,RANDOM 142 mg/dL (74-106)
[2023-09-04 13:41] LABS: CREATININE 0.9 mg/dL (0.55-1.3); SGOT/AST 15 U/L (15-37); SGPT/ALT 38 U/L (13-61)
[2023-09-04 13:42] LABS: BILIRUBIN,TOTAL 0.4 mg/dL (0.2-1)
[2023-09-04 13:44] LABS: ALK PHOS 78 U/L (45-117)
[2023-09-05 09:46] LABS: URINE APPEARANCE CLEAR; URINE BILIRUBIN NEGATIVE (NEGATIVE); URINE COLOR YELLOW; URINE GLUCOSE (UA) NEGATIVE (NEGATIVE); URINE KETONE NEGATIVE (NEGATIVE); URINE LEUK ESTERASE NEGATIVE (NEGATIVE); URINE NITRITE NEGATIVE (NEGATIVE); URINE PROTEIN NEGATIVE (NEGATIVE); URINE UROBILINOGEN 0.2 mg/dL (0.2-1.0)
[2023-09-06] MEDS: IBUPROFEN 600 MG TABLET (FP) PO PRN (21:16)
[2023-09-07 06:48] VITALS: RESP 18
[2023-09-08 07:08] VITALS: BP 125/76; PULSE 80; TEMP 98
== END 2023-09-08 12:24 | disposition home or self-care (01) | DRG 772 ==
LOC: YASAS 11:29 → Y3NR 14:57 → Y3E 15:24 → Y3W 15:30
PROVIDERS: ADMIT Allergy & Immunology; ATTEND Psychiatry & Neurology Pain Medicine
PROC: HZ42ZZZ Group Counseling for Substance Abuse Treatment, Cognitive-Behavioral (ICD-10-PCS; principal; 2023-09-03)
DX: F14.20 Cocaine dependence, uncomplicated (principal); F10.10 Alcohol abuse, uncomplicated; F12.20 Cannabis dependence, uncomplicated; F17.210 Nicotine dependence, cigarettes, uncomplicated; F20.0 Paranoid schizophrenia; F19.24 Other psychoactive substance dependence with psychoactive substance-induced mood disorder; F41.9 Anxiety disorder, unspecified; I10 Essential (primary) hypertension; J45.909 Unspecified asthma, uncomplicated; K21.9 Gastro-esophageal reflux disease without esophagitis; H91.93 Unspecified hearing loss, bilateral
CPT/HCPCS: 36415; 80053; 80305; 80307; 81003; 82962; 85027; 86780; 87635; 87811

== ENCOUNTER 2023-11-04 02:45 | Emergency (ER) | payer OTHER ==
[2023-11-04 02:51] VITALS: BP 122/83; PULSE 80; RESP 18; TEMP 98.1; BMI 25.8
[2023-11-04] MEDS: ACETAMINOPHEN 500 MG TABLET (FP) PO ONE (03:23)
[2023-11-04] MEDS: MAG HYDROX/AL HYDROX/SIMETH 30 ML UNIT-DOSE CUP PO ONE (03:23)
[2023-11-04] MEDS: SUCRALFATE 1 GM TABLET (FP) PO ONE (03:23)
[2023-11-04] MEDS ORDERED: SUCRALFATE 1 GM TABLET (FP) ONE (03:28)
[2023-11-04] MEDS ORDERED: ACETAMINOPHEN 325 MG TABLET (FP) ONE (03:28)
[2023-11-04] MEDS ORDERED: MAG HYDROX/AL HYDROX/SIMETH 30 ML UNIT-DOSE CUP ONE (03:29)
== END 2023-11-04 04:50 | disposition home or self-care (01) ==
LOC: JER 02:45
DX: R51.9 Headache, unspecified (principal); R11.0 Nausea; R10.84 Generalized abdominal pain; K29.70 Gastritis, unspecified, without bleeding
CPT/HCPCS: 99283-25

== ENCOUNTER 2024-02-28 00:22 | Inpatient (IN) | payer OTHER ==
[2024-02-28 00:49] VITALS: BMI 22.1
[2024-02-28] MEDS ORDERED: hydrOXYzine PAMOATE 25 MG CAPSULE (FP) PO PRN (01:23)
[2024-02-28] MEDS ORDERED: NALOXONE HCL 0.4 MG/ML VIAL IM PRN (01:23)
[2024-02-28] MEDS ORDERED: NICOTINE POLACRILEX 2 MG GUM BUC PRN (01:23)
[2024-02-28] MEDS ORDERED: ACETAMINOPHEN 325 MG TABLET (FP) PO PRN (01:23)
[2024-02-28] MEDS ORDERED: POLYETHYLENE GLYCOL (HEALTHYLAX) 3350 17 GM PACKET PO PRN (01:23)
[2024-02-28] MEDS ORDERED: BENZOCAINE/MENTHOL (CHLORASEPTIC ) LOZENGE MM PRN (01:23)
[2024-02-28] MEDS ORDERED: IBUPROFEN 400 MG TABLET (FP) PO PRN (01:23)
[2024-02-28] MEDS ORDERED: BENZONATATE 200 MG CAPSULE PO PRN (01:23)
[2024-02-28] MEDS ORDERED: MAGNESIUM HYDROX 2400MG/30ML ORAL SUSPENSION 30 ML CUP PO PRN (01:23)
[2024-02-28] MEDS ORDERED: LOPERAMIDE HCL 2 MG CAPSULE PO PRN (01:23)
[2024-02-28] MEDS ORDERED: guaiFENesin 600 MG TABLET.ER (FP) PO PRN (01:23)
[2024-02-28] MEDS ORDERED: NALOXONE (NARCAN) HCL 4 MG/0.1 ML SPRAY NS PRN (01:23)
[2024-02-28] MEDS ORDERED: MAG HYDROX/AL HYDROX/SIMETH 30 ML UNIT-DOSE CUP PO PRN (01:23)
[2024-02-28 10:03] LABS: CHLORIDE 109 mmol/L (98-107); SODIUM 142 mmol/L (136-145)
[2024-02-28 10:04] LABS: HEMATOCRIT 36.1 % (35.4-49); HEMOGLOBIN 11.7 GM/dL (11.7-16.9); MCH 23.7 pg (25.7-33.7); MCHC 32.4 g/dl (32.0-35.9); MEAN CELL VOLUME 73.4 fl (80-96); MEAN PLT VOLUME 8.5 fl (7.5-11.1); PLATELET COUNT 268 10^3/uL (134-434); RBC 4.92 M/mm3 (4.00-5.60); RDW 17.3 % (11.9-15.9); WHITE BLOOD COUNT 3.8 K/mm3 (4.0-10.0)
[2024-02-28 10:09] LABS: CALCIUM 8.6 mg/dL (8.5-10.1)
[2024-02-28 10:10] LABS: ALBUMIN 3.2 g/dl (3.4-5.0); ANION GAP 6 mmol/L (4-13); BLOOD UREA NITROGEN 18.6 mg/dL (7-18); CO2 27 mmol/L (21-32); GLUCOSE,RANDOM 100 mg/dL (74-106)
[2024-02-28 10:13] LABS: CREATININE 0.9 mg/dL (0.55-1.3); SGOT/AST 19 U/L (15-37); SGPT/ALT 19 U/L (13-61)
[2024-02-28 10:14] LABS: BILIRUBIN,TOTAL 0.5 mg/dL (0.2-1)
[2024-02-28 10:15] LABS: ALK PHOS 78 U/L (45-117)
[2024-02-28 10:35] LABS: SYPHILIS W/ RPR CONF NON-REACTIVE (NONREACTIVE)
[2024-02-28] MEDS: PRENATAL VITAMINS W/ FOLIC ACID TABLET (FP) PO SCH (11:00)
[2024-02-28] MEDS: NICOTINE 14 MG/24 HOURS TOPICAL PATCH TD SCH (11:00)
[2024-02-28] MEDS ORDERED: cloNIDine HCL 0.1 MG TABLET PO PRN (14:53)
[2024-02-28] MEDS: amLODIPine BESYLATE 2.5 MG TABLET (FP) PO SCH (15:35)
[2024-02-28] MEDS: MELATONIN 5 MG TABLETS PO SCH (21:36)
[2024-02-28] MEDS: BACLOFEN 10 MG TABLET (FP) PO SCH (21:37)
[2024-02-28] MEDS: THIAMINE 100 MG TABLET PO SCH (21:37)
[2024-02-29] MEDS: IBUPROFEN 600 MG TABLET (FP) PO PRN (18:43)
[2024-03-01 06:37] VITALS: TEMP 97.6
[2024-03-01 09:09] VITALS: BP 133/85; PULSE 89; RESP 16
[2024-03-01] MEDS ORDERED: NICOTINE 14 MG/24 HOURS TOPICAL PATCH TD PRN (09:18)
== END 2024-03-01 14:19 | disposition home or self-care (01) | DRG 772 ==
LOC: YASAS 00:22 → Y3E 02:05
PROVIDERS: ADMIT Allergy & Immunology; ATTEND Psychiatry & Neurology Pain Medicine
PROC: HZ42ZZZ Group Counseling for Substance Abuse Treatment, Cognitive-Behavioral (ICD-10-PCS; principal; 2024-02-28)
DX: F10.20 Alcohol dependence, uncomplicated (principal); F14.20 Cocaine dependence, uncomplicated; F11.10 Opioid abuse, uncomplicated; F12.20 Cannabis dependence, uncomplicated; F17.210 Nicotine dependence, cigarettes, uncomplicated; F20.0 Paranoid schizophrenia; I10 Essential (primary) hypertension; J45.909 Unspecified asthma, uncomplicated; K21.9 Gastro-esophageal reflux disease without esophagitis
CPT/HCPCS: 36415; 80053; 80305; 80307; 85027; 86780; 86803; 87811; 93005; 93010; J0475

== ENCOUNTER 2024-05-11 08:27 | Inpatient (IN) | payer OTHER ==
[2024-05-11 09:11] VITALS: BMI 25.4
[2024-05-11] MEDS ORDERED: IBUPROFEN 600 MG TABLET (FP) PO PRN (09:44)
[2024-05-11] MEDS ORDERED: MAGNESIUM HYDROX 2400MG/30ML ORAL SUSPENSION 30 ML CUP PO PRN (09:44)
[2024-05-11] MEDS ORDERED: DICYCLOMINE HCL 10 MG CAPSULE PO PRN (09:44)
[2024-05-11] MEDS ORDERED: POLYETHYLENE GLYCOL (HEALTHYLAX) 3350 17 GM PACKET PO PRN (09:44)
[2024-05-11] MEDS ORDERED: MAG HYDROX/AL HYDROX/SIMETH 30 ML UNIT-DOSE CUP PO PRN (09:44)
[2024-05-11] MEDS ORDERED: NALOXONE (NARCAN) HCL 4 MG/0.1 ML SPRAY NS PRN (09:44)
[2024-05-11] MEDS ORDERED: guaiFENesin 600 MG TABLET.ER (FP) PO PRN (09:44)
[2024-05-11] MEDS ORDERED: LOPERAMIDE HCL 2 MG CAPSULE PO PRN (09:44)
[2024-05-11] MEDS ORDERED: ONDANSETRON *ODT* 4 MG TABLET SL PRN (09:44)
[2024-05-11] MEDS ORDERED: IBUPROFEN 400 MG TABLET (FP) PO PRN (09:44)
[2024-05-11] MEDS ORDERED: BENZOCAINE/MENTHOL (CHLORASEPTIC ) LOZENGE MM PRN (09:44)
[2024-05-11] MEDS ORDERED: METHOCARBAMOL 500 MG TABLET PO PRN (09:44)
[2024-05-11] MEDS ORDERED: hydrOXYzine PAMOATE 25 MG CAPSULE (FP) PO PRN (09:44)
[2024-05-11] MEDS ORDERED: BISMUTH SUBSALICYLATE 262 MG/15 ML BTL PO PRN (09:44)
[2024-05-11] MEDS ORDERED: ACETAMINOPHEN 325 MG TABLET (FP) PO PRN (09:44)
[2024-05-11] MEDS ORDERED: BENZONATATE 200 MG CAPSULE PO PRN (09:44)
[2024-05-11] MEDS ORDERED: chlordiazePOXIDE HCL 25 MG CAPSULE PO PRN (09:46)
[2024-05-11] MEDS ORDERED: NICOTINE 14 MG/24 HOURS TOPICAL PATCH TD ONE (10:29)
[2024-05-11] MEDS ORDERED: PRENATAL VITAMINS W/ FOLIC ACID TABLET (FP) PO ONE (10:29)
[2024-05-11] MEDS ORDERED: chlordiazePOXIDE HCL 25 MG CAPSULE ONE (10:29)
[2024-05-11] MEDS: chlordiazePOXIDE HCL 25 MG CAPSULE PO SCH (10:31)
[2024-05-11] MEDS: NICOTINE 14 MG/24 HOURS TOPICAL PATCH TD SCH (10:31)
[2024-05-11] MEDS: PRENATAL VITAMINS W/ FOLIC ACID TABLET (FP) PO SCH (10:31)
[2024-05-11] MEDS: MELATONIN 5 MG TABLETS PO SCH (22:26)
[2024-05-11] MEDS: THIAMINE 100 MG TABLET PO SCH (22:27)
[2024-05-12 11:52] LABS: HEMATOCRIT 40.3 % (35.4-49); HEMOGLOBIN 12.5 GM/dL (11.7-16.9); MCHC 31.1 g/dl (32.0-35.9); MEAN PLT VOLUME 8.7 fl (7.5-11.1); PLATELET COUNT 401 10^3/uL (134-434); RBC 5.45 M/mm3 (4.00-5.60); RDW 17.3 % (11.9-15.9); WHITE BLOOD COUNT 4.8 K/mm3 (4.0-10.0)
[2024-05-12] MEDS: amLODIPine BESYLATE 5 MG TABLET (FP) PO SCH (11:59)
[2024-05-12 12:06] LABS: POTASSIUM 4.5 mmol/L (3.5-5.1)
[2024-05-12 12:15] LABS: ALBUMIN 3.5 g/dl (3.4-5.0); BLOOD UREA NITROGEN 15.3 mg/dL (7-18); CALCIUM 9.3 mg/dL (8.5-10.1)
[2024-05-12 12:18] LABS: BILIRUBIN,TOTAL 0.3 mg/dL (0.2-1); CREATININE 1.1 mg/dL (0.55-1.3); TOT PROT 6.6 g/dl (6.4-8.2)
[2024-05-13] MEDS: chlordiazePOXIDE HCL 25 MG CAPSULE PO SCH (05:52)
[2024-05-14] MEDS ORDERED: chlordiazePOXIDE HCL 10 MG CAPSULE PO PRN
[2024-05-14] MEDS: chlordiazePOXIDE HCL 10 MG CAPSULE PO SCH (05:36)
[2024-05-14 06:19] VITALS: RESP 18
[2024-05-14 12:44] VITALS: TEMP 97.6
[2024-05-14 16:46] VITALS: BP 110/80; PULSE 107
[2024-05-14] MEDS: NALOXONE (NYS OPIOID OVERDOSE PROGRAM) 4 MG/0.1 ML SPRAY NS SCH (17:35)
[2024-05-15] MEDS ORDERED: chlordiazePOXIDE HCL 10 MG CAPSULE PO SCH (05:00)
[2024-05-16] MEDS ORDERED: chlordiazePOXIDE HCL 10 MG CAPSULE PO ONE (05:00)
== END 2024-05-14 17:40 | disposition home or self-care (01) | DRG 774 ==
LOC: YASAS 08:27 → Y6N 12:10
PROVIDERS: ADMIT Allergy & Immunology; ATTEND Surgery
PROC: HZ2ZZZZ Detoxification Services for Substance Abuse Treatment (ICD-10-PCS; principal; 2024-05-11)
DX: F10.230 Alcohol dependence with withdrawal, uncomplicated (principal); F14.10 Cocaine abuse, uncomplicated; F12.10 Cannabis abuse, uncomplicated; F17.210 Nicotine dependence, cigarettes, uncomplicated; F20.9 Schizophrenia, unspecified; I10 Essential (primary) hypertension; J45.909 Unspecified asthma, uncomplicated
CPT/HCPCS: 36415; 80053; 80305; 80307; 85027; 86780; 93005; 93010

== ENCOUNTER 2024-10-30 16:12 | Inpatient (IN) | payer OTHER ==
[2024-10-30 16:43] VITALS: BMI 23.6
[2024-10-30] MEDS ORDERED: ACETAMINOPHEN 325 MG TABLET (FP) PO PRN (17:10)
[2024-10-30] MEDS ORDERED: MAGNESIUM HYDROX 2400MG/30ML ORAL SUSPENSION 30 ML CUP PO PRN (17:10)
[2024-10-30] MEDS ORDERED: MAG HYDROX/AL HYDROX/SIMETH 30 ML UNIT-DOSE CUP PO PRN (17:10)
[2024-10-30] MEDS ORDERED: BENZONATATE 200 MG CAPSULE PO PRN (17:10)
[2024-10-30] MEDS ORDERED: POLYETHYLENE GLYCOL (HEALTHYLAX) 3350 17 GM PACKET PO PRN (17:10)
[2024-10-30] MEDS ORDERED: BENZOCAINE/MENTHOL (CHLORASEPTIC ) LOZENGE MM PRN (17:10)
[2024-10-30] MEDS ORDERED: IBUPROFEN 600 MG TABLET (FP) PO PRN (17:10)
[2024-10-30] MEDS ORDERED: NALOXONE (NARCAN) HCL 4 MG/0.1 ML SPRAY NS PRN (17:10)
[2024-10-30] MEDS ORDERED: LOPERAMIDE HCL 2 MG CAPSULE PO PRN (17:10)
[2024-10-30] MEDS ORDERED: guaiFENesin 600 MG TABLET.ER (FP) PO PRN (17:10)
[2024-10-30] MEDS ORDERED: IBUPROFEN 400 MG TABLET (FP) PO PRN (17:10)
[2024-10-30] MEDS ORDERED: amLODIPine BESYLATE 5 MG TABLET (FP) ONE (17:44)
[2024-10-30] MEDS: amLODIPine BESYLATE 5 MG TABLET (FP) PO SCH (17:45)
[2024-10-30] MEDS: THIAMINE 100 MG TABLET PO SCH (21:30)
[2024-10-30] MEDS: MELATONIN 5 MG TABLETS PO SCH (21:30)
[2024-10-31] MEDS: PRENATAL VITAMINS W/ FOLIC ACID TABLET (FP) PO SCH (10:14)
[2024-10-31 11:26] LABS: CHLORIDE 109 mmol/L (98-107); POTASSIUM 4.4 mmol/L (3.5-5.1); SODIUM 143 mmol/L (136-145)
[2024-10-31 11:28] LABS: ALBUMIN 3.2 g/dl (3.4-5.0); ANION GAP 5 mmol/L (4-13); CALCIUM 8.9 mg/dL (8.5-10.1); CO2 28 mmol/L (21-32); GLUCOSE,RANDOM 102 mg/dL (74-106)
[2024-10-31 11:28] LABS: HEMATOCRIT 38.1 % (40.1-51.0); MCHC 31.5 g/dl (32.3-36.5); MEAN CELL VOLUME 73.3 fl (79.0-92.2); MEAN PLT VOLUME 11.2 fl (9.4-12.4); PLATELET COUNT 347 x10^3/uL (163-337); RDW 16.4 % (12.2-16.1)
[2024-10-31 11:29] LABS: BLOOD UREA NITROGEN 12.5 mg/dL (7-18)
[2024-10-31 11:29] LABS: URINE APPEARANCE CLEAR; URINE BILIRUBIN NEGATIVE (NEGATIVE); URINE COLOR YELLOW; URINE GLUCOSE (UA) NEGATIVE (NEGATIVE); URINE KETONE NEGATIVE (NEGATIVE); URINE LEUK ESTERASE NEGATIVE (NEGATIVE); URINE NITRITE NEGATIVE (NEGATIVE); URINE PROTEIN NEGATIVE (NEGATIVE)
[2024-10-31 11:31] LABS: CREATININE 0.7 mg/dL (0.55-1.3)
[2024-10-31 11:32] LABS: SGOT/AST 16 U/L (15-37); SGPT/ALT 21 U/L (13-61)
[2024-10-31 11:33] LABS: BILIRUBIN,TOTAL 0.3 mg/dL (0.2-1); TOT PROT 5.9 g/dl (6.4-8.2)
[2024-10-31 11:34] LABS: ALK PHOS 79 U/L (45-117)
[2024-10-31] MEDS: HALOPERIDOL 5 MG TABLET PO SCH (14:35)
[2024-10-31] MEDS: BENZTROPINE MESYLATE 1 MG TABLET PO SCH (14:35)
[2024-11-01] MEDS: amLODIPine BESYLATE 10 MG TABLET (FP) PO SCH (10:14)
[2024-11-02 05:59] VITALS: RESP 18; TEMP 97.3
[2024-11-02 09:42] VITALS: BP 115/85; PULSE 90
== END 2024-11-02 13:16 | disposition left against medical advice (07) | DRG 770 ==
LOC: YASAS 16:12 → Y3W 17:44
PROVIDERS: ADMIT Allergy & Immunology; ATTEND Psychiatry & Neurology Pain Medicine
PROC: HZ42ZZZ Group Counseling for Substance Abuse Treatment, Cognitive-Behavioral (ICD-10-PCS; principal; 2024-10-30)
DX: F10.20 Alcohol dependence, uncomplicated (principal); F14.20 Cocaine dependence, uncomplicated; F16.20 Hallucinogen dependence, uncomplicated; F12.20 Cannabis dependence, uncomplicated; F17.210 Nicotine dependence, cigarettes, uncomplicated; F20.9 Schizophrenia, unspecified; F19.282 Other psychoactive substance dependence with psychoactive substance-induced sleep disorder; H91.93 Unspecified hearing loss, bilateral; I10 Essential (primary) hypertension; J45.20 Mild intermittent asthma, uncomplicated; K21.9 Gastro-esophageal reflux disease without esophagitis; Z20.2 Contact with and (suspected) exposure to infections with a predominantly sexual mode of transmission
CPT/HCPCS: 36415; 80053; 80305; 80307; 81003; 82962; 85027; 86780; 87811; 93005; 93010